=== PATIENT | female | born 1980 | race Hispanic/Latino ===

== ENCOUNTER 2017-03-27 09:30 | Emergency (ER) | payer MEDICAID ==
[2017-03-27 10:21] LABS: Basophils % (Auto) 0.4 % (0.0-1.8); Eosinophils % (Auto) 2.8 % (0.0-4.3); Hematocrit 41.5 % (30.3-42.9); Hemoglobin 13.4 gm/dl (10.1-14.3); Mean Corpuscular HGB Conc 32 % (30-34); Mean Corpuscular Hemoglobin 27 pg (28-32); Mean Corpuscular Volume 83 fl (79-97); Platelet Count 271 K/mm3 (140-440); Red Blood Count 5.01 M/mm3 (3.65-5.03); Red Cell Distribution Width 14.8 % (13.2-15.2); White Blood Count 5.6 K/mm3 (4.5-11.0)
[2017-03-27 10:35] LABS: Alanine Aminotransferase 21 units/L (7-56); Albumin 3.5 g/dL (3.9-5); Albumin/Globulin Ratio 0.9 %; Alkaline Phosphatase 102 units/L (35-129); Anion Gap 18 mmol/L; Bilirubin,Total 0.4 mg/dL (0.1-1.2); Blood Urea Nitrogen 8 mg/dL (7-17); Calcium 8.6 mg/dL (8.4-10.2); Carbon Dioxide 21 mmol/L (22-30); Chloride 100.3 mmol/L (98-107); Glucose 116 mg/dL (65-100); Lipase 10 units/L (13-60); Potassium 4.1 mmol/L (3.6-5.0); Sodium 135 mmol/L (137-145); Total Protein 7.2 g/dL (6.3-8.2)
[2017-03-27 10:48] LABS: Bilirubin,Urine NEG (Negative); Blood,Urine NEG (Negative); Ketones,Urine NEG (Negative); Leukocyte Esterase,Urine NEG (Negative); Nitrite,Urine NEG (Negative); Protein,Urine <15 mg/dL mg/dL (Negative); Urobilinogen,Urine < 2.0 mg/dL (<2.0)
--- NOTE | 2017-03-27 17:47 | Emergency Department Report ---
Chief Complaint: Abdominal Pain Stated Complaint: ABD PAIN/NAUSEA/VOMITTING Time Seen by Provider: 03/27/17 17:42 - HPI History of Present Illness: Patient here complaining of mid epigastric pain with she's had in the past she said that it started 3 days ago. She says she was diagnosed with gastritis in the past with similar incident. She reports nausea and vomiting for 2 days denies any diarrhea. Denies any urinary burning frequency or urgency. Denies any back pain. Denies any vaginal bleeding or discharge. Pain is 8 out of 10 to her upper abdomen and feels crampy. Patient says she took Tylenol and Aleve [id number] and also took Pepto-Bismol but it didn't help she said acute process stomach virus for a couple days. - ROS Review of Systems: All systems are negative unless stated in HPI above - Exam Vital Signs: Vital Signs 03/27/17 09:43 Temperature 97.7 F Pulse Rate 100 H Respiratory 19 Rate Blood Pressure 150/85 O2 Sat by Pulse 99 Oximetry Physical Exam: General: This is a 36-year-old female that is obese and in no acute distress. GI: No distention, no rigidity, very obese. Soft, normal bowel sounds. Mild tenderness to palpate to mid abdomen. MSE screening note: Focused history and physical exam performed. Due to findings the following was ordered: ED Medical Decision Making - Lab Data Result diagrams: 03/27/17 09:57 03/27/17 09:57 Lab Results 03/27/17 03/27/17 03/27/17 Range/Units 09:57 09:57 09:57 WBC 5.6 (4.5-11.0) K/mm3 RBC 5.01 (3.65-5.03) M/mm3 Hgb 13.4 (10.1-14.3) gm/dl Hct 41.5 (30.3-42.9) % MCV 83 (79-97) fl MCH 27 L (28-32) pg MCHC 32 (30-34) % RDW 14.8 (13.2-15.2) % Plt Count 271 (140-440) K/mm3 Lymph % (Auto) 28.4 (13.4-35.0) % [place] % (Auto) 14.9 H (0.0-7.3) % Eos % (Auto) 2.8 (0.0-4.3) % Baso % (Auto) 0.4 (0.0-1.8) % Lymph # 1.6 (1.2-5.4) K/mm3 [place] # 0.8 (0.0-0.8) K/mm3 Eos # 0.2 (0.0-0.4) K/mm3 Baso # 0.0 (0.0-0.1) K/mm3 Seg Neutrophils % 53.5 (40.0-70.0) % Seg Neutrophils # 3.0 (1.8-7.7) K/mm3 Sodium 135 L (137-145) mmol/L Potassium 4.1 (3.6-5.0) mmol/L Chloride 100.3 (98-107) mmol/L Carbon Dioxide 21 L (22-30) mmol/L Anion Gap 18 mmol/L BUN 8 (7-17) mg/dL Creatinine 0.5 L (0.7-1.2) mg/dL Estimated GFR > 60 ml/min BUN/Creatinine Ratio 16.00 % Glucose 116 H (65-100) mg/dL Calcium 8.6 (8.4-10.2) mg/dL Total Bilirubin 0.4 (0.1-1.2) mg/dL AST 25 (5-40) units/L ALT 21 (7-56) units/L Alkaline Phosphatase 102 (35-129) units/L Total Protein 7.2 (6.3-8.2) g/dL Albumin 3.5 L (3.9-5) g/dL Albumin/Globulin Ratio 0.9 % Lipase 10 L (13-60) units/L HCG, Qual Negative (Negative) Urine Color (Yellow) Urine Turbidity (Clear) Urine pH (5.0-7.0) Ur Specific [place] (1.003-1.030) Urine Protein (Negative) mg/dL Urine Glucose (UA) (Negative) mg/dL Urine Ketones (Negative) mg/dL Urine Blood (Negative) Urine Nitrite (Negative) Urine Bilirubin (Negative) Urine Urobilinogen (<2.0) mg/dL Ur Leukocyte Esterase (Negative) Urine WBC (Auto) (0.0-6.0) /HPF Urine RBC (Auto) (0.0-6.0) /HPF U Epithel Cells (Auto) (0-13.0) /HPF 03/27/17 Range/Units 10:35 WBC (4.5-11.0) K/mm3 RBC (3.65-5.03) M/mm3 Hgb (10.1-14.3) gm/dl Hct (30.3-42.9) % MCV (79-97) fl MCH (28-32) pg MCHC (30-34) % RDW (13.2-15.2) % Plt Count (140-440) K/mm3 Lymph % (Auto) (13.4-35.0) % [place] % (Auto) (0.0-7.3) % Eos % (Auto) (0.0-4.3) % Baso % (Auto) (0.0-1.8) % Lymph # (1.2-5.4) K/mm3 [place] # (0.0-0.8) K/mm3 Eos # (0.0-0.4) K/mm3 Baso # (0.0-0.1) K/mm3 Seg Neutrophils % (40.0-70.0) % Seg Neutrophils # (1.8-7.7) K/mm3 Sodium (137-145) mmol/L Potassium (3.6-5.0) mmol/L Chloride (98-107) mmol/L Carbon Dioxide (22-30) mmol/L Anion Gap mmol/L BUN (7-17) mg/dL Creatinine (0.7-1.2) mg/dL Estimated GFR ml/min BUN/Creatinine Ratio % Glucose (65-100) mg/dL Calcium (8.4-10.2) mg/dL Total Bilirubin (0.1-1.2) mg/dL AST (5-40) units/L ALT (7-56) units/L Alkaline Phosphatase (35-129) units/L Total Protein (6.3-8.2) g/dL Albumin (3.9-5) g/dL Albumin/Globulin Ratio % Lipase (13-60) units/L HCG, Qual (Negative) Urine Color Yellow (Yellow) Urine Turbidity Clear (Clear) Urine pH 6.0 (5.0-7.0) Ur Specific [place] 1.010 (1.003-1.030) Urine Protein <15 mg/dl (Negative) mg/dL Urine Glucose (UA) Neg (Negative) mg/dL Urine Ketones Neg (Negative) mg/dL Urine Blood Neg (Negative) Urine Nitrite Neg (Negative) Urine Bilirubin Neg (Negative) Urine Urobilinogen < 2.0 (<2.0) mg/dL Ur Leukocyte Esterase Neg (Negative) Urine WBC (Auto) 1.0 (0.0-6.0) /HPF Urine RBC (Auto) 1.0 (0.0-6.0) /HPF U Epithel Cells (Auto) 4.0 (0-13.0) /HPF - Medical Decision Making Medical decision making: Patient seen by provider in triage area. Appropriate protocol activated and patient to main ED to be seen by physician. ED Disposition for MSE Condition: Stable Instructions: Abdominal Pain (ED) Referrals: PRIMARY CARE, [Primary Care Provider] - 3-5 Days
--- NOTE | 2017-03-27 18:03 | Emergency Department Report ---
ED Abdominal Pain HPI - General Chief Complaint: Abdominal Pain Stated Complaint: ABD PAIN/NAUSEA/VOMITTING Time Seen by Provider: 03/27/17 17:42 Source: patient, family Mode of arrival: Ambulatory Limitations: No Limitations - History of Present Illness Initial Comments: Patient here complaining of mid epigastric pain with she's had in the past she said that it started 3 days ago. She says she was diagnosed with gastritis in the past with similar incident. She reports nausea and vomiting for 2 days denies any diarrhea. Denies any urinary burning frequency or urgency. Denies any back pain. Denies any vaginal bleeding or discharge. Pain is 8 out of 10 to her upper abdomen and feels crampy. Patient says she took Tylenol and Aleve [id number] and also took Pepto-Bismol but it didn't help . She reports that her children have similar virus over the last couple days and she thinks she has it. She says she vomited times 2 in the morning. MD Complaint: abdominal pain Onset/Timin -: days(s) Location: epigastric Radiation: none Migration to: no migration Quality: burning Consistency: intermittent Improves With: nothing Worsens With: nothing Context: sick contacts Associated Symptoms: nausea, vomiting. denies: diarrhea, fever, chills, constipation, dysuria, hematemesis, hematochezia, melena, hematuria, anorexia, syncope Treatments Prior to Arrival: NSAIDs, antacids - Related Data LMP Date: 02/22/17 Previous Rx's Medication Instructions Recorded Last Taken Type Dicyclomine [Bentyl] 20 mg PO TID PRN #12 tablet 03/27/17 Unknown Rx Promethazine [Phenergan TAB] 25 mg PO Q8HR PRN #15 tab 03/27/17 Unknown Rx Allergies Allergy/AdvReac Type Severity Reaction Status Date / Time codeine Allergy Rash Verified 03/27/17 09:42 ED Review of Systems ROS: Stated complaint: ABD PAIN/NAUSEA/VOMITTING Other details as noted in HPI Comment: All other systems reviewed and negative Constitutional: denies: chills, fever ENT: denies: throat pain Respiratory: no symptoms reported Cardiovascular: denies: chest pain, palpitations, edema, syncope Gastrointestinal: abdominal pain, nausea, vomiting. denies: diarrhea, constipation, hematemesis, melena Genitourinary: denies: urgency, dysuria, frequency, hematuria, discharge Skin: denies: rash Neurological: denies: headache, weakness, numbness, paresthesias, confusion, abnormal gait ED Past Medical Hx - Past Medical History Previous Medical History?: Yes Hx GERD: Yes Hx Asthma: Yes Additional medical history: pancreatitis (multiple episodes ). obesity - Surgical History Hx Cholecystectomy: Yes Additional Surgical History: x 2 - Social History Smoking Status: Current Every Day Smoker Substance Use Type: None - Medications Home Medications: Home Medications Medication Instructions Recorded Confirmed Last Taken Type Dicyclomine [Bentyl] 20 mg PO TID PRN #12 tablet 03/27/17 Unknown Rx Promethazine [Phenergan TAB] 25 mg PO Q8HR PRN #15 tab 03/27/17 Unknown Rx ED Physical Exam - General Limitations: No Limitations General appearance: alert, in no apparent distress - Head Head exam: Present: atraumatic, normocephalic, normal inspection - Eye Eye exam: Present: normal appearance, PERRL, EOMI. Absent: periorbital swelling , periorbital tenderness Pupils: Present: normal accommodation - ENT ENT exam: Present: normal exam, normal orophraynx, mucous membranes moist, TM's normal bilaterally, normal external ear exam - Neck Neck exam: Present: normal inspection, full ROM. Absent: tenderness, meningismus, lymphadenopathy - Respiratory Respiratory exam: Present: normal lung sounds bilaterally. Absent: respiratory distress, chest wall tenderness - Cardiovascular Cardiovascular Exam: Present: regular rate, normal rhythm, normal heart sounds - GI/Abdominal GI/Abdominal exam: Present: soft, normal bowel sounds. Absent: distended, tenderness, guarding, rebound, rigid, diminished bowel sounds, hyperactive bowel sounds, hypoactive bowel sounds, organomegaly, mass, bruit, pulsatile mass , hernia - Extremities Exam Extremities exam: Present: normal inspection, full ROM, normal capillary refill. Absent: tenderness, pedal edema, joint swelling, calf tenderness - Back Exam Back exam: Present: normal inspection, full ROM. Absent: tenderness, CVA tenderness (R), CVA tenderness (L), muscle spasm, paraspinal tenderness, vertebral tenderness, rash noted - Neurological Exam Neurological exam: Present: alert, oriented X3, normal gait. Absent: motor sensory deficit, reflexes normal - Psychiatric Psychiatric exam: Present: normal affect, normal mood - Skin Skin exam: Present: warm, dry, normal color. Absent: rash ED Course Vital Signs 03/27/17 03/27/17 09:43 18:54 Temperature 97.7 F 98 F Pulse Rate 100 H 89 Respiratory 19 89 H Rate Blood Pressure 150/85 Blood Pressure 137/79 [Right] O2 Sat by Pulse 99 100 Oximetry - Reevaluation(s) Reevaluation #1: 03/27/17 20:04 She is stable throughout ED course. Able to tolerate cranberry juice without any difficulties and did not vomit. Reevaluation of abdominal exam with no changes. Reevaluation #2: 03/27/17 20:06 Patient given Magic mouthwash 15 mils, Bentyl 20 mg by mouth and Zofran 8 mg ODT. ED Medical Decision Making - Lab Data Result diagrams: 03/27/17 09:57 03/27/17 09:57 Labs 03/27/17 03/27/17 03/27/17 09:57 09:57 09:57 WBC 5.6 RBC 5.01 Hgb 13.4 Hct 41.5 MCV 83 MCH 27 L MCHC 32 RDW 14.8 Plt Count 271 Lymph % (Auto) 28.4 [place] % (Auto) 14.9 H Eos % (Auto) 2.8 Baso % (Auto) 0.4 Lymph # 1.6 [place] # 0.8 Eos # 0.2 Baso # 0.0 Seg Neutrophils % 53.5 Seg Neutrophils # 3.0 Sodium 135 L Potassium 4.1 Chloride 100.3 Carbon Dioxide 21 L Anion Gap 18 BUN 8 Creatinine 0.5 L Estimated GFR > 60 BUN/Creatinine Ratio 16.00 Glucose 116 H Calcium 8.6 Total Bilirubin 0.4 AST 25 ALT 21 Alkaline Phosphatase 102 Total Protein 7.2 Albumin 3.5 L Albumin/Globulin Ratio 0.9 Lipase 10 L HCG, Qual Negative Urine Color Urine Turbidity Urine pH Ur Specific [place] Urine Protein Urine Glucose (UA) Urine Ketones Urine Blood Urine Nitrite Urine Bilirubin Urine Urobilinogen Ur Leukocyte Esterase Urine WBC (Auto) Urine RBC (Auto) U Epithel Cells (Auto) 03/27/17 10:35 WBC RBC Hgb Hct MCV MCH MCHC RDW Plt Count Lymph % (Auto) [place] % (Auto) Eos % (Auto) Baso % (Auto) Lymph # [place] # Eos # Baso # Seg Neutrophils % Seg Neutrophils # Sodium Potassium Chloride Carbon Dioxide Anion Gap BUN Creatinine Estimated GFR BUN/Creatinine Ratio Glucose Calcium Total Bilirubin AST ALT Alkaline Phosphatase Total Protein Albumin Albumin/Globulin Ratio Lipase HCG, Qual Urine Color Yellow Urine Turbidity Clear Urine pH 6.0 Ur Specific [place] 1.010 Urine Protein <15 mg/dl Urine Glucose (UA) Neg Urine Ketones Neg Urine Blood Neg Urine Nitrite Neg Urine Bilirubin Neg Urine Urobilinogen < 2.0 Ur Leukocyte Esterase Neg Urine WBC (Auto) 1.0 Urine RBC (Auto) 1.0 U Epithel Cells (Auto) 4.0 - Medical Decision Making ED course:Patient with epigastric pain unspecified, nausea and vomiting with explanation from children.Patient given Magic mouthwash 15 mils, Bentyl 20 mg by mouth and Zofran 8 mg ODT. I discussed lab work and urine was felt the patient. Her labs are stable. Patient able to tolerate oral liquids in emergency room without any nausea or vomiting. Patient was undescended discharge diagnosis and treatment plan and discharged home with prescription for Bentyl and Phenergan. Patient encouraged to follow up with tester electronic scale for further evaluation and treatment of epigastric pain pain continues. Critical care attestation.: If time is entered above; I have spent that time in minutes in the direct care of this critically ill patient, excluding procedure time. ED Disposition Clinical Impression: Epigastric abdominal pain Nausea & vomiting Qualifiers: Vomiting type: unspecified Vomiting Intractability: non-intractable Qualified Code(s): R11.2 - Nausea with vomiting, unspecified Disposition: DISCHARGED TO HOME OR SELFCARE Is pt being admited?: No Does the pt Need Aspirin: No Instructions: Abdominal Pain (ED), Acute Nausea and Vomiting (ED) Additional Instructions: Drink plenty of fluids Phenergan can cause drowsiness so please do not operate any heavy machinery or drive motor vehicle while taking this medication Prescriptions: Dicyclomine [Bentyl] 20 mg PO TID PRN #12 tablet PRN Reason: STOMACH PAIN Promethazine [Phenergan TAB] 25 mg PO Q8HR PRN #15 tab PRN Reason: Nausea Referrals: [facility] [Outside] - 03/28/17 [facility] [Provider Group] - 04/01/17 Forms: Accompanied Note, Work/School Release Form(ED)
[2017-03-27 18:55] VITALS: BP 137/79
[2017-03-27] MEDS ORDERED: BENTYL PO ONE ×2 (20:05→21:00)
[2017-03-27] MEDS ORDERED: ZOFRAN ODT PO ONE (20:05)
[2017-03-27] MEDS ORDERED: MAGIC MOUTHWASH PO ONE (20:05)
== END 2017-03-27 21:06 | disposition home or self-care (01) ==
LOC: ED 09:30
DX: R10.13 Epigastric pain (principal); R11.2 Nausea with vomiting, unspecified; K21.9 Gastro-esophageal reflux disease without esophagitis; J45.909 Unspecified asthma, uncomplicated; K85.90 Acute pancreatitis without necrosis or infection, unspecified; E66.9 Obesity, unspecified; F17.200 Nicotine dependence, unspecified, uncomplicated
CPT/HCPCS: 36415; 80053; 81001; 83690; 84703; 85025; 99284; Q0162

== ENCOUNTER 2017-10-08 07:58 | Emergency (ER) | payer MEDICAID ==
[2017-10-08 08:21] VITALS: BP 143/84
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
[2017-10-08] MEDS ORDERED: NORCO 5/325 PO ONE (10:28)
--- NOTE | 2017-10-08 12:36 | XRay Report ---
Right shoulder 3 views: History: Injury. Findings: No bony or articular abnormality. No fracture dislocation or soft tissue calcification. Impression: No evidence of acute fracture.
== END 2017-10-08 13:47 | disposition home or self-care (01) ==
LOC: ED 07:58
DX: S49.91XA Unspecified injury of right shoulder and upper arm, initial encounter (principal); M25.511 Pain in right shoulder; Y04.0XXA Assault by unarmed brawl or fight, initial encounter; Y93.89 Activity, other specified; Y92.89 Other specified places as the place of occurrence of the external cause; Y99.8 Other external cause status
CPT/HCPCS: 81025

== ENCOUNTER 2018-03-28 13:42 | Emergency (ER) | payer MEDICAID ==
[2018-03-28] MEDS ORDERED: DUONEB *Not for PRN Use IH ONE (14:55)
[2018-03-28] MEDS ORDERED: DELTASONE PO ONE (14:55)
--- NOTE | 2018-03-28 14:55 | Emergency Department Report ---
ED General Adult HPI - General Chief complaint: Upper Respiratory Infection Stated complaint: COUGH CONGESTION Time Seen by Provider: 03/28/18 14:42 Source: patient Mode of arrival: Ambulatory Limitations: No Limitations - History of Present Illness -: Gradual Location: head Radiation: non-radiation Severity scale (0 -10): 5 Quality: aching Consistency: other (headache with cough, no neck pain , visual disturbances, weakness or gait changes or fever) - Related Data Previous Rx's Medication Instructions Recorded Last Taken Type Azithromycin [Zithromax Z-ELODIA] 250 mg PO DAILY 5 Days #6 tablet 03/28/18 Unknown Rx predniSONE [Deltasone] 40 mg PO QDAY 4 Days #8 tab 03/28/18 Unknown Rx Allergies Allergy/AdvReac Type Severity Reaction Status Date / Time codeine Allergy Rash Verified 03/27/17 09:42 ED Review of Systems ROS: Stated complaint: COUGH CONGESTION Other details as noted in HPI Comment: All other systems reviewed and negative Constitutional: denies: chills, fever Eyes: denies: eye pain, eye discharge, vision change ENT: denies: ear pain, throat pain Respiratory: cough, wheezing, other (pt smokes). denies: shortness of breath Cardiovascular: denies: chest pain, palpitations, syncope, paroxysmal nocturnal dyspnea Endocrine: no symptoms reported. denies: excessive sweating, increased thirst, increased urine Gastrointestinal: denies: abdominal pain, nausea, diarrhea Genitourinary: denies: urgency, dysuria, discharge Musculoskeletal: denies: back pain, joint swelling, arthralgia Skin: denies: rash, lesions Neurological: denies: headache, weakness, paresthesias Psychiatric: denies: anxiety, depression Hematological/Lymphatic: denies: easy bleeding, easy bruising ED Past Medical Hx - Past Medical History Hx Hypertension: No Hx CVA: No Hx Heart Attack/AMI: No Hx Congestive Heart Failure: No Hx Diabetes: No Hx Deep Vein Thrombosis: No Hx Pulmonary Embolism: No Hx GERD: Yes Hx Liver Disease: No Hx Renal Disease: No Hx of Cancer: No Hx Sickle Cell Disease: No Hx Arthritis: No Hx Headaches / Migraines: Yes Hx Seizures: No Hx Kidney Stones: No Hx Psychiatric Treatment: No Hx Asthma: Yes (pt smokes, i counciled pt to stop) Hx COPD: No Additional medical history: pancreatitis (multiple episodes ), BRONCHITIS. obesity - Surgical History Hx Cholecystectomy: Yes Additional Surgical History: x 2 - Social History Smoking Status: Current Every Day Smoker Substance Use Type: None - Medications Home Medications: Home Medications Medication Instructions Recorded Confirmed Last Taken Type Azithromycin [Zithromax Z-ELODIA] 250 mg PO DAILY 5 Days #6 tablet 03/28/18 Unknown Rx predniSONE [Deltasone] 40 mg PO QDAY 4 Days #8 tab 03/28/18 Unknown Rx ED Physical Exam - General Limitations: No Limitations General appearance: alert, in no apparent distress - Head Head exam: Present: atraumatic, normocephalic - Eye Eye exam: Present: normal appearance - ENT ENT exam: Present: mucous membranes moist - Neck Neck exam: Present: normal inspection - Respiratory Respiratory exam: Present: normal lung sounds bilaterally, wheezes. Absent: respiratory distress, rales, rhonchi, stridor, chest wall tenderness, accessory muscle use, decreased breath sounds, prolonged expiratory - Cardiovascular Cardiovascular Exam: Present: regular rate, normal rhythm. Absent: systolic murmur, diastolic murmur, rubs, gallop - GI/Abdominal GI/Abdominal exam: Present: soft, normal bowel sounds - Extremities Exam Extremities exam: Present: normal inspection - Back Exam Back exam: Present: normal inspection - Neurological Exam Neurological exam: Present: alert, oriented X3 - Psychiatric Psychiatric exam: Present: normal affect, normal mood - Skin Skin exam: Present: warm, dry, intact, normal color. Absent: rash ED Course Vital Signs 03/28/18 13:46 Temperature 98.9 F Pulse Rate 98 H Respiratory 20 Rate Blood Pressure 166/96 O2 Sat by Pulse 99 Oximetry ED Medical Decision Making - Radiology Data Radiology results: report reviewed (no acute cardiopulmonary findings) - Medical Decision Making no more wheezing. pt asking for z pack, states " this helps me when i get this" pt counciled to stop smoking. no cp or sob or l arm pain or jaw pain. Critical Care Time: No Critical care attestation.: If time is entered above; I have spent that time in minutes in the direct care of this critically ill patient, excluding procedure time. ED Disposition Clinical Impression: Wheezing on expiration, Cough, Smoker Disposition: DC-01 TO HOME OR SELFCARE Is pt being admited?: No Does the pt Need Aspirin: No Condition: Stable Instructions: How to Stop Smoking (ED) Additional Instructions: Call 911 if you have chest pain or trouble breathing. Never smoke, as smoking causes heart attacks, strokes and bad lung diseases and cancers. Smoking ages your body much faster than if you didn't smoke. Prescriptions: Azithromycin [Zithromax Z-ELODIA] 250 mg PO DAILY 5 Days #6 tablet predniSONE [Deltasone] 40 mg PO QDAY 4 Days #8 tab Referrals: PRIMARY CARE, [Primary Care Provider] - 3-5 Days
[2018-03-28] MEDS ORDERED: NORCO 5/325 PO ONE (14:56)
[2018-03-28] MEDS ORDERED: BENADRYL PO ONE (14:57)
--- NOTE | 2018-03-28 15:19 | XRay Report ---
Chest 2 views: Compare to 06/28/16. History: Upper respiratory infection. Findings: Normal cardiomediastinal silhouette. Trachea is midline. No consolidation, pneumothorax or pleural effusion. Impression: No acute cardiopulmonary findings
[2018-03-28 15:50] VITALS: BP 152/87
== END 2018-03-28 15:53 | disposition home or self-care (01) ==
LOC: ED 13:42
DX: R06.2 Wheezing (principal); R05 Cough; K21.9 Gastro-esophageal reflux disease without esophagitis; J45.909 Unspecified asthma, uncomplicated; F17.200 Nicotine dependence, unspecified, uncomplicated; Z90.49 Acquired absence of other specified parts of digestive tract; Z88.5 Allergy status to narcotic agent
CPT/HCPCS: 71046; 99283; J7512

== ENCOUNTER 2019-03-12 09:07 | Emergency (ER) | payer MEDICAID ==
[2019-03-12 09:20] VITALS: BP 133/68
[2019-03-12] MEDS ORDERED: PROVENTIL IH ONE (09:46)
[2019-03-12] MEDS ORDERED: ATROVENT IH ONE (09:46)
[2019-03-12] MEDS ORDERED: DECADRON IM ONE (09:46)
--- NOTE | 2019-03-12 09:53 | Emergency Department Report ---
Upper Respiratory HPI - HPI Chief Complaint: Upper Respiratory Infection Stated Complaint: SAUL/COUGHING Time Seen by Provider: 03/12/19 09:33 Duration: 2 Days URI Symptoms: Rhinorrhea: Yes, Sore Throat: No, Ear Pain: No, Cough: Yes, Shortness of Breath: Yes, Sick Contacts: No, Unable to Take Fluids: No, Urine Output Abnormal: No, Listless Behavior: No Other History: This is a 38-year-old female nontoxic, well nourished in appearance, no acute signs of distress presents to the ED with c/o of productive cough, SOB, rhinorrhea, nasal congestion x2 days. Patient describes productive cough as yellow mucus production. Patient denies any sick contact. Patient denies any recent travels, long car, recent hospital stays. Patient denies any calf pain or calf tenderness. Patient denies any chest pain, short of breath, fever, chills, nausea, vomiting, hemoptysis, numbness, tingling, headache or stiff neck. Patient stated allergies to codeine. - Home Meds and Allergies Home Medications: Previous Rx's Medication Instructions Recorded Last Taken Type ALBUTEROL NEB's [Proventil 0.083% 2.5 mg IH TID PRN 7 Days neb 03/28/18 Unknown Rx NEBS] Azithromycin [Zithromax Z-ELODIA] 250 mg PO DAILY 5 Days #6 tablet 03/28/18 Unknown Rx Nebulizer and Compressor [Portable 1 each MC 4XD 7 Days each 03/28/18 Unknown Rx Nebulizer System] predniSONE [Deltasone] 40 mg PO QDAY 4 Days #8 tab 03/28/18 Unknown Rx ALBUTEROL Inhaler(NF) [VENTOLIN 2 puff IH Q4-6H PRN #1 inha 03/12/19 Unknown Rx Inhaler(NF)] Azithromycin [Zithromax Z-ELODIA] 250 mg PO DAILY #6 tablet 03/12/19 Unknown Rx Benzonatate [Tessalon Perle] 100 mg PO Q6H PRN #20 capsule 03/12/19 Unknown Rx Prednisone [predniSONE 10 mg 10 mg PO .TAPER #1 tab.ds.pk 03/12/19 Unknown Rx (6-Day Pack, 21 Tabs)] Allergies/Adverse Reactions: Allergies Allergy/AdvReac Type Severity Reaction Status Date / Time codeine Allergy Rash Verified 03/12/19 09:09 ED Review of Systems ROS: Stated complaint: SAUL/COUGHING Other details as noted in HPI Constitutional: denies: chills, fever Eyes: denies: eye pain, eye discharge, vision change ENT: congestion. denies: ear pain, throat pain Respiratory: cough, shortness of breath. denies: wheezing Cardiovascular: denies: chest pain, palpitations Endocrine: no symptoms reported Gastrointestinal: denies: abdominal pain, nausea, diarrhea Genitourinary: denies: urgency, dysuria, discharge Musculoskeletal: denies: back pain, joint swelling, arthralgia Skin: denies: rash, lesions Neurological: denies: headache, weakness, paresthesias Psychiatric: denies: anxiety, depression Hematological/Lymphatic: denies: easy bleeding, easy bruising ED Past Medical Hx - Past Medical History Previous Medical History?: Yes Hx Hypertension: No Hx CVA: No Hx Heart Attack/AMI: No Hx Congestive Heart Failure: No Hx Diabetes: No Hx Deep Vein Thrombosis: No Hx Pulmonary Embolism: No Hx GERD: Yes Hx Liver Disease: No Hx Renal Disease: No Hx Sickle Cell Disease: No Hx Arthritis: No Hx Headaches / Migraines: Yes Hx Seizures: No Hx Kidney Stones: No Hx Psychiatric Treatment: No Hx Asthma: Yes (pt smokes, i counciled pt to stop) Hx COPD: No Additional medical history: pancreatitis (multiple episodes ), BRONCHITIS. obesity - Surgical History Past Surgical History?: Yes Hx Cholecystectomy: Yes Additional Surgical History: x 2 - Social History Smoking Status: Current Every Day Smoker Substance Use Type: None - Medications Home Medications: Home Medications Medication Instructions Recorded Confirmed Last Taken Type ALBUTEROL NEB's [Proventil 0.083% 2.5 mg IH TID PRN 7 Days neb 03/28/18 Unknown Rx NEBS] Azithromycin [Zithromax Z-ELODIA] 250 mg PO DAILY 5 Days #6 tablet 03/28/18 Unknown Rx Nebulizer and Compressor [Portable 1 each MC 4XD 7 Days each 03/28/18 Unknown Rx Nebulizer System] predniSONE [Deltasone] 40 mg PO QDAY 4 Days #8 tab 03/28/18 Unknown Rx ALBUTEROL Inhaler(NF) [VENTOLIN 2 puff IH Q4-6H PRN #1 inha 03/12/19 Unknown Rx Inhaler(NF)] Azithromycin [Zithromax Z-ELODIA] 250 mg PO DAILY #6 tablet 03/12/19 Unknown Rx Benzonatate [Tessalon Perle] 100 mg PO Q6H PRN #20 capsule 03/12/19 Unknown Rx Prednisone [predniSONE 10 mg 10 mg PO .TAPER #1 tab.ds.pk 03/12/19 Unknown Rx (6-Day Pack, 21 Tabs)] ED Bronchiolitis Physical Exam - Exam General: Vital signs noted. No distress. Alert and acting appropriately. Neurologic: Alert and oriented, no deficits. Musculoskeletal: Unremarkable. ED Physical Exam - General Limitations: No Limitations General appearance: alert, in no apparent distress - Head Head exam: Present: atraumatic, normocephalic - Eye Eye exam: Present: normal appearance - Neck Neck exam: Present: normal inspection, full ROM. Absent: tenderness, meningismus, lymphadenopathy - Respiratory Respiratory exam: Present: normal lung sounds bilaterally, wheezes, decreased breath sounds. Absent: respiratory distress, rales, rhonchi, stridor, chest wall tenderness, accessory muscle use, prolonged expiratory - Cardiovascular Cardiovascular Exam: Present: regular rate, normal rhythm, normal heart sounds. Absent: irregular rhythm, systolic murmur, diastolic murmur, rubs, gallop - Extremities Exam Extremities exam: Present: normal inspection, full ROM - Back Exam Back exam: Present: normal inspection, full ROM - Neurological Exam Neurological exam: Present: alert, oriented X3, normal gait - Psychiatric Psychiatric exam: Present: normal affect, normal mood - Skin Skin exam: Present: warm, dry, intact, normal color. Absent: rash ED Course Vital Signs 03/12/19 03/12/19 09:17 09:39 Temperature 98.4 F Pulse Rate 98 H Respiratory 24 17 Rate Blood Pressure 133/68 O2 Sat by Pulse 100 Oximetry - Consultations Consultation #1: 03/12/19 09:50 Patient is speaking in full sentences with no signs of distress noted. ED Medical Decision Making - Medical Decision Making This is a 38-year-old female that presents with bronchitis. Patient is stable and was examined by me. Chest x-ray has been obtained and dictated by radiologist with normal exam. Patient is notified of x-ray results with no questions noted. Patient did receive breathing treatment and steroids in the ED which patient the symptoms has resolved and subsided. Posttreatment and there is no wheezing upon auscultation. Patient is discharged with albuterol and prednisone. Due to patient having symptoms of upper respiratory infection and worsening I will treat patient empirically with zpak. Patient was instructed to increase hydration, rest and take Motrin for fever episodes. Vitals stable. Patient is nonfebrile and normal heart rate. Patient was instructed Follow-up with a primary care doctor in 3-5 days or if symptoms worsen and continue return to emergency room as soon as possible. At time time of discharge, the patient does not seem toxic or ill in appearance. No acute signs of distress noted. Patient agrees to discharge treatment plan of care. No further questions noted by the patient. Critical care attestation.: If time is entered above; I have spent that time in minutes in the direct care of this critically ill patient, excluding procedure time. ED Disposition Clinical Impression: Bronchitis Disposition: DC-01 TO HOME OR SELFCARE Is pt being admited?: No Does the pt Need Aspirin: No Condition: Stable Instructions: Acute Bronchitis (ED) Additional Instructions: Follow-up with a primary care doctor in 3-5 days or if symptoms worsen and continue return to emergency room as soon as possible. Prescriptions: Prednisone [predniSONE 10 mg (6-Day Pack, 21 Tabs)] 10 mg PO .TAPER #1 tab.ds.pk Benzonatate [Tessalon Perle] 100 mg PO Q6H PRN #20 capsule PRN Reason: Cough ALBUTEROL Inhaler(NF) [VENTOLIN Inhaler(NF)] 2 puff IH Q4-6H PRN #1 inha PRN Reason: Wheezing Azithromycin [Zithromax Z-ELODIA] 250 mg PO DAILY #6 tablet Referrals: PRIMARY MD FRANNIE [Referring] - 3-5 Days KRISTINE CAR MD [Staff Physician] - 3-5 Days [facility] [Outside] - 3-5 Days [facility] [Outside] - 3-5 Days Forms: Work/School Release Form(ED)
--- NOTE | 2019-03-12 10:34 | XRay Report ---
XRAY CHEST TWO VIEWS: 03/12/19 09:07:00 CLINICAL: Cough and shortness of breath. COMPARISON: 03/28/18 FINDINGS: Normal heart and pulmonary vasculature. The lungs are normally expanded and clear.The bones and soft tissues are unremarkable. IMPRESSION: Normal chest.
== END 2019-03-12 10:52 | disposition home or self-care (01) ==
LOC: ED 09:07
DX: J45.909 Unspecified asthma, uncomplicated (principal); K21.9 Gastro-esophageal reflux disease without esophagitis; G43.909 Migraine, unspecified, not intractable, without status migrainosus; F17.210 Nicotine dependence, cigarettes, uncomplicated; Z90.49 Acquired absence of other specified parts of digestive tract; Z88.6 Allergy status to analgesic agent
CPT/HCPCS: 71046; 94640; 96372; 99283; J1100

== ENCOUNTER 2019-04-04 17:44 | Emergency (ER) | payer MEDICAID ==
[2019-04-04 18:10] VITALS: BP 135/76
[2019-04-04 19:37] LABS: Basophils % (Auto) 0.5 % (0.0-1.8); Eosinophils # (Auto) 0.2 K/mm3 (0.0-0.4); Eosinophils % (Auto) 2.5 % (0.0-4.3); Hematocrit 32.1 % (30.3-42.9); Hemoglobin 10.1 gm/dl (10.1-14.3); Lymphocytes # (Auto) 2.1 K/mm3 (1.2-5.4); Mean Corpuscular HGB Conc 31 % (30-34); Mean Corpuscular Volume 74 fl (79-97); Monocytes # (Auto) 0.7 K/mm3 (0.0-0.8); Monocytes % (Auto) 11.2 % (0.0-7.3); Platelet Count 298 K/mm3 (140-440); Red Blood Count 4.37 M/mm3 (3.65-5.03); Red Cell Distribution Width 18.8 % (13.2-15.2)
[2019-04-04 19:47] LABS: INR 1.07 (0.87-1.13)
[2019-04-04 19:48] LABS: Partial Thromboplastin Time 33.3 Sec. (24.2-36.6)
[2019-04-04 19:53] LABS: Alanine Aminotransferase 19 units/L (7-56); Albumin 3.5 g/dL (3.9-5); BUN/Creatinine Ratio 11; Blood Urea Nitrogen 8 mg/dL (7-17); Calcium 8.7 mg/dL (8.4-10.2); Hemolysis Index 7
--- NOTE | 2019-04-04 20:04 | Emergency Department Report ---
ED General Adult HPI - General Chief complaint: Extremity Problem,Nontraumatic Stated complaint: KNOT RT ARM Time Seen by Provider: 04/04/19 19:10 Source: patient Mode of arrival: Ambulatory Limitations: No Limitations - History of Present Illness Initial comments: Patient is a 38-year-old white female with a history of GERD, chronic migraine headaches and asthma and usually donates plasma regularly presents to the ED with right upper ecchymosis over the last 12 hours. Patient states that she had gone to the midline about 8 hours ago when upon examination she was advised to come to the ED for blood tests and rule out any abnormal lab values due to the ecchymotic bruise on her right upper arm. Patient asked for medical clearance in order to continue donating blood and plasma. Patient denies fever, chills, nausea, vomiting, shortness of breath, chest pain, numbness and tingling right upper extremity, neck pain, fall or traumatic injury. MD Complaint: Right upper arm bruises -: Sudden, hour(s) (12), This morning Location: upper extremity (right upper arm) Radiation: non-radiation Severity scale (0 -10): 1 Quality: aching, dull Consistency: constant Improves with: none Worsens with: none Associated Symptoms: denies: confusion, chest pain, cough, diaphoresis, fever/chills, headaches, loss of appetite, malaise, nausea/vomiting, rash, seizure, shortness of breath, syncope, weakness, other Treatments Prior to Arrival: none - Related Data Previous Rx's Medication Instructions Recorded Last Taken Type ALBUTEROL NEB's [Proventil 0.083% 2.5 mg IH TID PRN 7 Days neb 03/28/18 Unknown Rx NEBS] Azithromycin [Zithromax Z-ELODIA] 250 mg PO DAILY 5 Days #6 tablet 03/28/18 Unknown Rx Nebulizer and Compressor [Portable 1 each MC 4XD 7 Days each 03/28/18 Unknown Rx Nebulizer System] predniSONE [Deltasone] 40 mg PO QDAY 4 Days #8 tab 03/28/18 Unknown Rx ALBUTEROL Inhaler(NF) [VENTOLIN 2 puff IH Q4-6H PRN #1 inha 03/12/19 Unknown Rx Inhaler(NF)] Azithromycin [Zithromax Z-ELODIA] 250 mg PO DAILY #6 tablet 03/12/19 Unknown Rx Benzonatate [Tessalon Perle] 100 mg PO Q6H PRN #20 capsule 03/12/19 Unknown Rx Prednisone [predniSONE 10 mg 10 mg PO .TAPER #1 tab.ds.pk 03/12/19 Unknown Rx (6-Day Pack, 21 Tabs)] Allergies Allergy/AdvReac Type Severity Reaction Status Date / Time codeine Allergy Rash Verified 04/04/19 17:54 ED Review of Systems ROS: Stated complaint: KNOT RT ARM Other details as noted in HPI Comment: All other systems reviewed and negative Constitutional: no symptoms reported, see HPI. denies: chills, diaphoresis, fever, malaise Eyes: as per HPI. denies: eye pain, eye discharge, vision change ENT: as per HPI. denies: ear pain, throat pain, dental pain, hearing loss Respiratory: no symptoms reported, see HPI. denies: shortness of breath, SOB with exertion, SOB at rest Cardiovascular: as per HPI. denies: chest pain, palpitations, dyspnea on exertion Endocrine: no symptoms reported, see HPI. denies: excessive sweating, intolerance to cold, increased thirst, unexplained weight gain Gastrointestinal: as per HPI. denies: abdominal pain, nausea, vomiting, diarrhea, hematemesis, melena Genitourinary: as per HPI. denies: urgency, frequency, hematuria, discharge Musculoskeletal: as per HPI. denies: back pain, joint swelling, arthralgia, myalgia Skin: as per HPI, change in color (Mildly erythematous small patchy nontender bruises on right upper arm). denies: rash, lesions, change in hair/nails, pruritus, other Neurological: as per HPI. denies: headache, weakness, numbness, paresthesias, confusion, abnormal gait, vertigo Psychiatric: as per HPI. denies: anxiety, depression, auditory hallucinations, visual hallucinations Hematological/Lymphatic: as per HPI, other (right upper arm mildly patchy erythematous ecchymosis). denies: easy bleeding, easy bruising, swollen glands ED Past Medical Hx - Past Medical History Previous Medical History?: Yes Hx Hypertension: No Hx CVA: No Hx Heart Attack/AMI: No Hx Congestive Heart Failure: No Hx Diabetes: No Hx Deep Vein Thrombosis: No Hx Pulmonary Embolism: No Hx GERD: Yes Hx Liver Disease: No Hx Renal Disease: No Hx Sickle Cell Disease: No Hx Arthritis: No Hx Headaches / Migraines: Yes Hx Seizures: No Hx Kidney Stones: No Hx Psychiatric Treatment: No Hx Asthma: Yes (pt smokes, i counciled pt to stop) Hx COPD: No Additional medical history: pancreatitis (multiple episodes ), BRONCHITIS. obesity - Surgical History Hx Cholecystectomy: Yes Additional Surgical History: x 2 - Social History Smoking Status: Current Every Day Smoker Substance Use Type: None - Medications Home Medications: Home Medications Medication Instructions Recorded Confirmed Last Taken Type ALBUTEROL NEB's [Proventil 0.083% 2.5 mg IH TID PRN 7 Days neb 03/28/18 Unk nown Rx NEBS] Azithromycin [Zithromax Z-ELODIA] 250 mg PO DAILY 5 Days #6 tablet 03/28/18 Unkn own Rx Nebulizer and Compressor [Portable 1 each MC 4XD 7 Days each 03/28/18 Unknown Rx Nebulizer System] predniSONE [Deltasone] 40 mg PO QDAY 4 Days #8 tab 03/28/18 Unknown Rx ALBUTEROL Inhaler(NF) [VENTOLIN 2 puff IH Q4-6H PRN #1 inha 03/12/19 Unknown Rx Inhaler(NF)] Azithromycin [Zithromax Z-ELODIA] 250 mg PO DAILY #6 tablet 03/12/19 Unknown Rx Benzonatate [Tessalon Perle] 100 mg PO Q6H PRN #20 capsule 03/12/19 Unknown Rx Prednisone [predniSONE 10 mg 10 mg PO .TAPER #1 tab.ds.pk 03/12/19 Unknown Rx (6-Day Pack, 21 Tabs)] ED Physical Exam - General Limitations: No Limitations General appearance: alert, in no apparent distress - Head Head exam: Present: atraumatic, normocephalic, normal inspection - Eye Eye exam: Present: normal appearance, PERRL, EOMI. Absent: conjunctival injecti on, periorbital swelling, periorbital tenderness Pupils: Present: normal accommodation - ENT ENT exam: Present: normal exam, normal orophraynx, mucous membranes moist, TM's normal bilaterally, normal external ear exam - Neck Neck exam: Present: normal inspection. Absent: tenderness, meningismus, full ROM, lymphadenopathy, thyromegaly - Respiratory Respiratory exam: Present: normal lung sounds bilaterally. Absent: respiratory distress, wheezes, rales, rhonchi, chest wall tenderness, accessory muscle use, decreased breath sounds - Cardiovascular Cardiovascular Exam: Present: regular rate, normal rhythm, normal heart sounds - GI/Abdominal GI/Abdominal exam: Present: soft, normal bowel sounds. Absent: distended, tenderness, hyperactive bowel sounds, hypoactive bowel sounds - Rectal Rectal exam: Present: deferred - Extremities Exam Extremities exam: Present: normal inspection. Absent: full ROM, tenderness, normal capillary refill, pedal edema, joint swelling, calf tenderness - Back Exam Back exam: Present: normal inspection, full ROM. Absent: tenderness, CVA tenderness (R), CVA tenderness (L), muscle spasm - Neurological Exam Neurological exam: Present: alert, oriented X3, CN II-XII intact, normal gait, r eflexes normal - Psychiatric Psychiatric exam: Present: normal affect - Skin Skin exam: Present: warm, ecchymosis (right upper arm ). Absent: dry, intact ED Course Vital Signs 04/04/19 18:08 Temperature 98.5 F Pulse Rate 91 H Respiratory 16 Rate Blood Pressure 135/76 O2 Sat by Pulse 99 Oximetry ED Medical Decision Making - Lab Data Result diagrams: 04/04/19 19:24 04/04/19 19:24 - Medical Decision Making Patient is alert and oriented 3 and is not in distress with normal vital signs. Lab tests results were reviewed and are unremarkable including platelet levels, PTT and PT levels. Patient was discharged home and advised to follow-up with her primary care physician in 7-10 days for reevaluation or return to the ED immediately if symptoms get worse. - Differential Diagnosis Traumatic ecchymosis; Thrombophlebitis Critical care attestation.: If time is entered above; I have spent that time in minutes in the direct care of this critically ill patient, excluding procedure time. ED Disposition Clinical Impression: Traumatic ecchymosis of right upper arm Qualifiers: Encounter type: initial encounter Qualified Code(s): S40.021A - Contusion of right upper arm, initial encounter Disposition: TO HOME OR SELFCARE Is pt being admited?: No Does the pt Need Aspirin: No Condition: Stable Instructions: Arthralgia (ED) Additional Instructions: FOLLOW UP WITH YOUR PRIMARY CARE PHYSICIAN ADVISED. YOU ARE FREE TO DONATE BLOOD AND OR PLASMA NEEDED Referrals: [facility] [Outside] - 3-5 Days [facility] [Outside] - 3-5 Days Time of Disposition: 20:04 Print Language: NEPALI
== END 2019-04-04 20:10 | disposition home or self-care (01) ==
LOC: ED 17:44
DX: S40.021A Contusion of right upper arm, initial encounter (principal); K21.9 Gastro-esophageal reflux disease without esophagitis; G43.909 Migraine, unspecified, not intractable, without status migrainosus; J45.909 Unspecified asthma, uncomplicated; F17.200 Nicotine dependence, unspecified, uncomplicated; Z90.49 Acquired absence of other specified parts of digestive tract; Z88.6 Allergy status to analgesic agent; X58.XXXA Exposure to other specified factors, initial encounter; Y93.89 Activity, other specified; Y92.89 Other specified places as the place of occurrence of the external cause; Y99.8 Other external cause status
CPT/HCPCS: 36415; 80053; 85025; 85610; 85730; 99283

== ENCOUNTER 2019-05-14 21:05 | Emergency (ER) | payer MEDICAID ==
--- NOTE | 2019-05-14 21:49 | Emergency Department Report ---
Blank Doc - Documentation Documentation: This is a 38-year-old female that presents with bilateral feet pain and swelli ng. Deneis any chest pain or SOB. This initial assessment/diagnostic orders/clinical plan/treatment(s) is/are subject to change based on patient's health status, clinical progression and re-assessment by fellow clinical providers in the ED. Further treatment and workup at subsequent clinical providers discretion. Patient/guardians urged not to elope from the ED as their condition may be serious if not clinically assessed and managed. Initial orders include: 1- Patient sent to [facility] for further evaluation and treatment 2- labs
[2019-05-14 22:15] LABS: Basophils # (Auto) 0.1 K/mm3 (0.0-0.1); Basophils % (Auto) 0.9 % (0.0-1.8); Eosinophils # (Auto) 0.2 K/mm3 (0.0-0.4); Eosinophils % (Auto) 3.2 % (0.0-4.3); Hematocrit 33.3 % (30.3-42.9); Hemoglobin 10.9 gm/dl (10.1-14.3); Lymphocytes # (Auto) 2.1 K/mm3 (1.2-5.4); Lymphocytes % (Auto) 36.4 % (13.4-35.0); Mean Corpuscular HGB Conc 33 % (30-34); Mean Corpuscular Volume 74 fl (79-97); Monocytes # (Auto) 0.6 K/mm3 (0.0-0.8); Monocytes % (Auto) 10.9 % (0.0-7.3); Platelet Count 327 K/mm3 (140-440); Red Cell Distribution Width 18.1 % (13.2-15.2)
[2019-05-14 22:32] LABS: BUN/Creatinine Ratio 11; Blood Urea Nitrogen 8 mg/dL (7-17); Hemolysis Index 7
--- NOTE | 2019-05-14 23:08 | Emergency Department Report ---
ED General Adult HPI - General Chief complaint: Extremity Problem,Nontraumatic Stated complaint: SWOLLEN LEGS AND FEET PAIN Time Seen by Provider: 05/14/19 21:48 Source: patient Mode of arrival: Ambulatory Limitations: No Limitations - History of Present Illness Initial comments: Patient is a 38-year-old female who is presenting with bilateral foot and ankle swelling for the past 3 days. Patient states is been no change in her normal routine. Patient's states that the swelling in tight sensation is worse at night and better in the morning. Patient states it's a tetanus severity as far as pain. She denies any injury or trauma. Patient states she already is on a low salt diet. She denies any chest pain shortness of breath fevers chills nausea vomiting or diarrhea. Patient has a past smoker history of asthma and continues to smoke, GERD, migraines, and pancreatitis. Patient has a past surgical history of 2 C-sections and a cholecystectomy - Related Data Previous Rx's Medication Instructions Recorded Last Taken Type ALBUTEROL NEB's [Proventil 0.083% 2.5 mg IH TID PRN 7 Days neb 03/28/18 Unknown Rx NEBS] Azithromycin [Zithromax Z-ELODIA] 250 mg PO DAILY 5 Days #6 tablet 03/28/18 Unknown Rx Nebulizer and Compressor [Portable 1 each MC 4XD 7 Days each 03/28/18 Unknown Rx Nebulizer System] predniSONE [Deltasone] 40 mg PO QDAY 4 Days #8 tab 03/28/18 Unknown Rx ALBUTEROL Inhaler(NF) [VENTOLIN 2 puff IH Q4-6H PRN #1 inha 03/12/19 Unknown Rx Inhaler(NF)] Azithromycin [Zithromax Z-ELODIA] 250 mg PO DAILY #6 tablet 03/12/19 Unknown Rx Benzonatate [Tessalon Perle] 100 mg PO Q6H PRN #20 capsule 03/12/19 Unknown Rx Prednisone [predniSONE 10 mg 10 mg PO .TAPER #1 tab.ds.pk 03/12/19 Unknown Rx (6-Day Pack, 21 Tabs)] Furosemide [Lasix] 20 mg PO QDAY #7 tablet 05/15/19 Unknown Rx Ketorolac [Toradol] 10 mg PO Q6H PRN #12 tablet 05/15/19 Unknown Rx Allergies Allergy/AdvReac Type Severity Reaction Status Date / Time codeine Allergy Rash Verified 04/04/19 17:54 ED Review of Systems ROS: Stated complaint: SWOLLEN LEGS AND FEET PAIN Other details as noted in HPI Comment: All other systems reviewed and negative ED Past Medical Hx - Past Medical History Previous Medical History?: Yes Hx Hypertension: No Hx CVA: No Hx Heart Attack/AMI: No Hx Congestive Heart Failure: No Hx Diabetes: No Hx Deep Vein Thrombosis: No Hx Pulmonary Embolism: No Hx GERD: Yes Hx Liver Disease: No Hx Renal Disease: No Hx Sickle Cell Disease: No Hx Arthritis: No Hx Headaches / Migraines: Yes Hx Seizures: No Hx Kidney Stones: No Hx Psychiatric Treatment: No Hx Asthma: Yes (pt smokes, i counciled pt to stop) Hx COPD: No Additional medical history: pancreatitis (multiple episodes ), BRONCHITIS. obesity - Surgical History Past Surgical History?: Yes Hx Cholecystectomy: Yes Additional Surgical History: x 2 - Social History Smoking Status: Current Every Day Smoker Substance Use Type: None - Medications Home Medications: Home Medications Medication Instructions Recorded Confirmed Last Taken Type ALBUTEROL NEB's [Proventil 0.083% 2.5 mg IH TID PRN 7 Days neb 03/28/18 Unknown Rx NEBS] Azithromycin [Zithromax Z-ELODIA] 250 mg PO DAILY 5 Days #6 tablet 03/28/18 Unknown Rx Nebulizer and Compressor [Portable 1 each MC 4XD 7 Days each 03/28/18 Unknown Rx Nebulizer System] predniSONE [Deltasone] 40 mg PO QDAY 4 Days #8 tab 03/28/18 Unknown Rx ALBUTEROL Inhaler(NF) [VENTOLIN 2 puff IH Q4-6H PRN #1 inha 03/12/19 Unknown Rx Inhaler(NF)] Azithromycin [Zithromax Z-ELODIA] 250 mg PO DAILY #6 tablet 03/12/19 Unknown Rx Benzonatate [Tessalon Perle] 100 mg PO Q6H PRN #20 capsule 03/12/19 Unknown Rx Prednisone [predniSONE 10 mg 10 mg PO .TAPER #1 tab.ds.pk 03/12/19 Unknown Rx (6-Day Pack, 21 Tabs)] Furosemide [Lasix] 20 mg PO QDAY #7 tablet 05/15/19 Unknown Rx Ketorolac [Toradol] 10 mg PO Q6H PRN #12 tablet 05/15/19 Unknown Rx ED Physical Exam - General Limitations: No Limitations General appearance: alert, in no apparent distress - Head Head exam: Present: atraumatic, normocephalic - Eye Eye exam: Present: normal appearance - ENT ENT exam: Present: mucous membranes moist - Neck Neck exam: Present: normal inspection - Respiratory Respiratory exam: Present: normal lung sounds bilaterally. Absent: respiratory distress, wheezes, rales, rhonchi - Cardiovascular Cardiovascular Exam: Present: regular rate, normal rhythm, normal heart sounds. Absent: systolic murmur, diastolic murmur, rubs, gallop - GI/Abdominal GI/Abdominal exam: Present: soft, normal bowel sounds. Absent: distended, tenderness, guarding, rebound - Extremities Exam Extremities exam: Present: normal inspection, other (2+ bilateral lower extremity edema up to the mid calf.) - Back Exam Back exam: Present: normal inspection - Neurological Exam Neurological exam: Present: alert, oriented X3 - Psychiatric Psychiatric exam: Present: normal affect, normal mood - Skin Skin exam: Present: warm, dry, intact, normal color. Absent: rash ED Course Vital Signs 05/14/19 05/14/19 21:48 23:27 Temperature 98.2 F 98.2 F Pulse Rate 87 75 Respiratory 20 16 Rate Blood Pressure 125/80 Blood Pressure 151/70 [Left] O2 Sat by Pulse 98 Oximetry ED Medical Decision Making - Lab Data Result diagrams: 05/14/19 21:53 05/14/19 21:53 Lab Results 05/14/19 05/14/19 05/14/19 Range/Units 21:53 21:53 21:53 WBC 5.8 (4.5-11.0) K/mm3 RBC 4.50 (3.65-5.03) M/mm3 Hgb 10.9 (10.1-14.3) gm/dl Hct 33.3 (30.3-42.9) % MCV 74 L (79-97) fl MCH 24 L (28-32) pg MCHC 33 (30-34) % RDW 18.1 H (13.2-15.2) % Plt Count 327 (140-440) K/mm3 Lymph % (Auto) 36.4 H (13.4-35.0) % [place] % (Auto) 10.9 H (0.0-7.3) % Eos % (Auto) 3.2 (0.0-4.3) % Baso % (Auto) 0.9 (0.0-1.8) % Lymph # 2.1 (1.2-5.4) K/mm3 [place] # 0.6 (0.0-0.8) K/mm3 Eos # 0.2 (0.0-0.4) K/mm3 Baso # 0.1 (0.0-0.1) K/mm3 Seg Neutrophils % 48.6 (40.0-70.0) % Seg Neutrophils # 2.8 (1.8-7.7) K/mm3 Sodium 139 (137-145) mmol/L Potassium 5.1 H (3.6-5.0) mmol/L Chloride 104.4 (98-107) mmol/L Carbon Dioxide 25 (22-30) mmol/L Anion Gap 15 mmol/L BUN 8 (7-17) mg/dL Creatinine 0.7 (0.7-1.2) mg/dL Estimated GFR > 60 ml/min BUN/Creatinine Ratio 11 % Glucose 113 H (65-100) mg/dL Calcium 9.0 (8.4-10.2) mg/dL HCG, Qual Negative (Negative) Urine Color (Yellow) Urine Turbidity (Clear) Urine pH (5.0-7.0) Ur Specific [place] (1.003-1.030) Urine Protein (Negative) mg/dL Urine Glucose (UA) (Negative) mg/dL Urine Ketones (Negative) mg/dL Urine Blood (Negative) Urine Nitrite (Negative) Urine Bilirubin (Negative) Urine Urobilinogen (<2.0) mg/dL Ur Leukocyte Esterase (Negative) Urine WBC (Auto) (0.0-6.0) /HPF Urine RBC (Auto) (0.0-6.0) /HPF U Epithel Cells (Auto) (0-13.0) /HPF Urine Bacteria (Auto) (Negative) /HPF Amorphous Crystals Urine Mucus /HPF 05/14/19 Range/Units 23:27 WBC (4.5-11.0) K/mm3 RBC (3.65-5.03) M/mm3 Hgb (10.1-14.3) gm/dl Hct (30.3-42.9) % MCV (79-97) fl MCH (28-32) pg MCHC (30-34) % RDW (13.2-15.2) % Plt Count (140-440) K/mm3 Lymph % (Auto) (13.4-35.0) % [place] % (Auto) (0.0-7.3) % Eos % (Auto) (0.0-4.3) % Baso % (Auto) (0.0-1.8) % Lymph # (1.2-5.4) K/mm3 [place] # (0.0-0.8) K/mm3 Eos # (0.0-0.4) K/mm3 Baso # (0.0-0.1) K/mm3 Seg Neutrophils % (40.0-70.0) % Seg Neutrophils # (1.8-7.7) K/mm3 Sodium (137-145) mmol/L Potassium (3.6-5.0) mmol/L Chloride (98-107) mmol/L Carbon Dioxide (22-30) mmol/L Anion Gap mmol/L BUN (7-17) mg/dL Creatinine (0.7-1.2) mg/dL Estimated GFR ml/min BUN/Creatinine Ratio % Glucose (65-100) mg/dL Calcium (8.4-10.2) mg/dL HCG, Qual (Negative) Urine Color Yellow (Yellow) Urine Turbidity Slightly-cloudy (Clear) Urine pH 7.0 (5.0-7.0) Ur Specific [place] 1.015 (1.003-1.030) Urine Protein <15 mg/dl (Negative) mg/dL Urine Glucose (UA) Neg (Negative) mg/dL Urine Ketones Neg (Negative) mg/dL Urine Blood Neg (Negative) Urine Nitrite Neg (Negative) Urine Bilirubin Neg (Negative) Urine Urobilinogen < 2.0 (<2.0) mg/dL Ur Leukocyte Esterase Sm (Negative) Urine WBC (Auto) 1.0 (0.0-6.0) /HPF Urine RBC (Auto) 3.0 (0.0-6.0) /HPF U Epithel Cells (Auto) 21.0 H (0-13.0) /HPF Urine Bacteria (Auto) 2+ (Negative) /HPF Amorphous Crystals 1+ Urine Mucus Few /HPF - Medical Decision Making Patient likely with dependent edema secondary to fluid overload. Patient has no signs and symptoms of congestive heart failure is chest pain-free. Patient started on low dose of Lasix for the next several days and the patient will be discharged home with follow-up with primary care. - Differential Diagnosis dependent edema, cellulitis, nephrotic syndrome, congestive heart failure Critical care attestation.: If time is entered above; I have spent that time in minutes in the direct care of this critically ill patient, excluding procedure time. ED Disposition Clinical Impression: Dependent edema Disposition: DC-01 TO HOME OR SELFCARE Is pt being admited?: No Does the pt Need Aspirin: No Condition: Stable Instructions: Leg Edema (ED) Prescriptions: Furosemide [Lasix] 20 mg PO QDAY #7 tablet Referrals: TITI NATARAJAN MD [Primary Care Provider] - 3-5 Days Time of Disposition: 00:22
[2019-05-14 23:54] LABS: Amorphous Crystals,Urine 1+; Bacteria,Urine 2+ /HPF (Negative); Bilirubin,Urine NEG (Negative); Blood,Urine NEG (Negative); Color,Urine Yellow (Yellow); Mucus,Urine FEW /HPF; Protein,Urine <15 mg/dL mg/dL (Negative); Urobilinogen,Urine < 2.0 mg/dL (<2.0)
[2019-05-15 00:53] VITALS: BP 143/74
== END 2019-05-15 00:40 | disposition home or self-care (01) ==
LOC: ED 21:05
DX: M79.672 Pain in left foot (principal); M79.671 Pain in right foot; R60.9 Edema, unspecified; K21.9 Gastro-esophageal reflux disease without esophagitis; G43.909 Migraine, unspecified, not intractable, without status migrainosus; J45.909 Unspecified asthma, uncomplicated; F17.200 Nicotine dependence, unspecified, uncomplicated; Z90.49 Acquired absence of other specified parts of digestive tract; Z98.890 Other specified postprocedural states; Z79.899 Other long term (current) drug therapy; Z88.6 Allergy status to analgesic agent
CPT/HCPCS: 36415; 80048; 81001; 84703; 85025; 99283

== ENCOUNTER 2019-07-06 12:46 | Emergency (ER) | payer MEDICAID ==
[2019-07-06 14:09] VITALS: BP 121/67
[2019-07-06] MEDS ORDERED: TORADOL IM ONE (14:22)
[2019-07-06] MEDS ORDERED: ZANAFLEX PO ONE (14:23)
--- NOTE | 2019-07-06 14:25 | Emergency Department Report ---
ED Back Pain/Injury HPI - General Chief Complaint: Back Pain/Injury Stated Complaint: BACK PAIN (R) SIDE Time Seen by Provider: 07/06/19 14:19 Source: patient Limitations: No Limitations - History of Present Illness Initial Comments: 38 y/o female back pain since last. Reports that she was moving furniture. Has taking Tylenol extra strength last dose 10:00. Denies any trauma. MD Complaint: back pain, back injury -: Last night Place: home Radiation: none Severity scale (0 -10): 10 Quality: burning, sharp Consistency: constant Improves With: supine Worsens With: movement, deep breaths/cough Context: while lifting Associated Symptoms: denies: numbness, difficulty urinating, incontinence, fever/chills Treatments Prior to Arrival: acetaminophen - Related Data Previous Rx's Medication Instructions Recorded Last Taken Type ALBUTEROL NEB's [Proventil 0.083% 2.5 mg IH TID PRN 7 Days neb 03/28/18 Unknown Rx NEBS] Azithromycin [Zithromax Z-ELODIA] 250 mg PO DAILY 5 Days #6 tablet 03/28/18 Unknown Rx Nebulizer and Compressor [Portable 1 each MC 4XD 7 Days each 03/28/18 Unknown Rx Nebulizer System] predniSONE [Deltasone] 40 mg PO QDAY 4 Days #8 tab 03/28/18 Unknown Rx ALBUTEROL Inhaler(NF) [VENTOLIN 2 puff IH Q4-6H PRN #1 inha 03/12/19 Unknown Rx Inhaler(NF)] Azithromycin [Zithromax Z-ELODIA] 250 mg PO DAILY #6 tablet 03/12/19 Unknown Rx Benzonatate [Tessalon Perle] 100 mg PO Q6H PRN #20 capsule 03/12/19 Unknown Rx Prednisone [predniSONE 10 mg 10 mg PO .TAPER #1 tab.ds.pk 03/12/19 Unknown Rx (6-Day Pack, 21 Tabs)] Furosemide [Lasix] 20 mg PO QDAY #7 tablet 05/15/19 Unknown Rx Ketorolac [Toradol] 10 mg PO Q6H PRN #12 tablet 05/15/19 Unknown Rx Baclofen [Lioresal] 10 mg PO TID #15 tab 07/06/19 Unknown Rx Ibuprofen [Motrin 800 MG tab] 800 mg PO Q8HR PRN #30 tablet 07/06/19 Unknown Rx Allergies Allergy/AdvReac Type Severity Reaction Status Date / Time codeine Allergy Rash Verified 04/04/19 17:54 ED Review of Systems ROS: Stated complaint: BACK PAIN (R) SIDE Other details as noted in HPI Comment: All other systems reviewed and negative ED Past Medical Hx - Past Medical History Hx Hypertension: No Hx CVA: No Hx Heart Attack/AMI: No Hx Congestive Heart Failure: No Hx Diabetes: No Hx Deep Vein Thrombosis: No Hx Pulmonary Embolism: No Hx GERD: Yes Hx Liver Disease: No Hx Renal Disease: No Hx Sickle Cell Disease: No Hx Arthritis: No Hx Headaches / Migraines: Yes Hx Seizures: No Hx Kidney Stones: No Hx Psychiatric Treatment: No Hx Asthma: Yes (pt smokes, i counciled pt to stop) Hx COPD: No Additional medical history: pancreatitis (multiple episodes ), BRONCHITIS. obesity - Surgical History Hx Cholecystectomy: Yes Additional Surgical History: x 2 - Social History Smoking Status: Current Some Day Smoker Substance Use Type: None - Medications Home Medications: Home Medications Medication Instructions Recorded Confirmed Last Taken Type ALBUTEROL NEB's [Proventil 0.083% 2.5 mg IH TID PRN 7 Days neb 03/28/18 Unknown Rx NEBS] Azithromycin [Zithromax Z-ELODIA] 250 mg PO DAILY 5 Days #6 tablet 03/28/18 Unknown Rx Nebulizer and Compressor [Portable 1 each MC 4XD 7 Days each 03/28/18 Unknown Rx Nebulizer System] predniSONE [Deltasone] 40 mg PO QDAY 4 Days #8 tab 03/28/18 Unknown Rx ALBUTEROL Inhaler(NF) [VENTOLIN 2 puff IH Q4-6H PRN #1 inha 03/12/19 Unknown Rx Inhaler(NF)] Azithromycin [Zithromax Z-ELODIA] 250 mg PO DAILY #6 tablet 03/12/19 Unknown Rx Benzonatate [Tessalon Perle] 100 mg PO Q6H PRN #20 capsule 03/12/19 Unknown Rx Prednisone [predniSONE 10 mg 10 mg PO .TAPER #1 tab.ds.pk 03/12/19 Unknown Rx (6-Day Pack, 21 Tabs)] Furosemide [Lasix] 20 mg PO QDAY #7 tablet 05/15/19 Unknown Rx Ketorolac [Toradol] 10 mg PO Q6H PRN #12 tablet 05/15/19 Unknown Rx Baclofen [Lioresal] 10 mg PO TID #15 tab 07/06/19 Unknown Rx Ibuprofen [Motrin 800 MG tab] 800 mg PO Q8HR PRN #30 tablet 07/06/19 Unknown Rx ED Physical Exam - General Limitations: No Limitations General appearance: alert, in no apparent distress - Head Head exam: Present: atraumatic, normocephalic - Eye Eye exam: Present: normal appearance - ENT ENT exam: Present: mucous membranes moist - Neck Neck exam: Present: normal inspection - Cardiovascular Cardiovascular Exam: Absent: bradycardia - Back Exam Back exam: Present: full ROM, tenderness, muscle spasm, paraspinal tenderness - Neurological Exam Neurological exam: Present: alert, oriented X3 - Psychiatric Psychiatric exam: Present: normal affect, normal mood - Skin Skin exam: Present: warm, dry, intact, normal color. Absent: rash ED Course Vital Signs 07/06/19 14:07 Temperature 97.9 F Pulse Rate 91 H Respiratory 16 Rate Blood Pressure 121/67 O2 Sat by Pulse 100 Oximetry ED Medical Decision Making - Medical Decision Making 38 y/o female back pain since last. Reports that she was moving furniture. Has taking Tylenol extra strength last dose 10:00. Denies any trauma. Tordol 30mg and Zanflex 4 mg. Discharge home on Baclophen and ibuprofen. Critical care attestation.: If time is entered above; I have spent that time in minutes in the direct care of this critically ill patient, excluding procedure time. ED Disposition Clinical Impression: Severely overweight Back pain Qualifiers: Back pain location: thoracic back pain Chronicity: acute Back pain laterality: unspecified Qualified Code(s): M54.6 - Pain in thoracic spine Disposition: DC-01 TO HOME OR SELFCARE Is pt being admited?: No Does the pt Need Aspirin: No Condition: Stable Instructions: Acute Low Back Pain (ED), Obesity (ED) Additional Instructions: Take meds as prescribed. Follow up with a Primary Care provider. Prescriptions: Baclofen [Lioresal] 10 mg PO TID #15 tab Ibuprofen [Motrin 800 MG tab] 800 mg PO Q8HR PRN #30 tablet PRN Reason: Pain , Severe (7-10) Referrals: [facility] [Provider Group] - 3-5 Days
== END 2019-07-06 15:26 | disposition home or self-care (01) ==
LOC: ED 12:46
DX: M54.89 Other dorsalgia (principal); K21.9 Gastro-esophageal reflux disease without esophagitis; G43.909 Migraine, unspecified, not intractable, without status migrainosus; J45.909 Unspecified asthma, uncomplicated; F17.200 Nicotine dependence, unspecified, uncomplicated; Z90.49 Acquired absence of other specified parts of digestive tract; Z79.899 Other long term (current) drug therapy; Z88.6 Allergy status to analgesic agent
CPT/HCPCS: 96372; 99282; J1885

== ENCOUNTER 2020-02-02 17:58 | Emergency (ER) | payer MEDICAID | END 2020-02-02 21:00 | disposition left against medical advice (07) | LOC: ED 17:58 | DX: F41.0 Panic disorder [episodic paroxysmal anxiety] (principal); Z53.21 Procedure and treatment not carried out due to patient leaving prior to being seen by health care provider ==

== ENCOUNTER 2020-05-06 20:15 | Outpatient (CLI) | payer MEDICAID ==
--- NOTE | 2020-05-06 20:53 | XRay Report ---
RIGHT KNEE 3 VIEWS INDICATION / CLINICAL INFORMATION: Fall with right knee pain. COMPARISON: None available. FINDINGS: BONES / JOINT(S): There are [id number] tricompartmental degenerative changes, most prominent in volving the patellofemoral joint. There is no evidence of fracture, subluxation or joint effusion. SOFT TISSUES: No significant abnormality. ADDITIONAL FINDINGS: None. Signer Name: Myke Barclay MD Signed: 05/06/2020 8:49 PM Workstation Name: [email or web address]
== END 2020-05-06 20:16 | disposition home or self-care (01) ==
LOC: XRAY 20:15
PROVIDERS: ATTEND Internal Medicine
DX: M17.11 Unilateral primary osteoarthritis, right knee (principal)

== ENCOUNTER 2020-06-22 21:25 | Emergency (ER) | payer MEDICAID ==
--- NOTE | 2020-06-23 02:57 | Emergency Department Report ---
- General Chief complaint: Skin/Abscess/Foreign Body Stated complaint: INSECT BITE Time Seen by Provider: 06/23/20 02:17 Source: patient Mode of arrival: Ambulatory Limitations: No Limitations - History of Present Illness Initial comments: 39-year-old female presents emerged department complaining of possible insect bite to right lower back with tenderness no discharge. MD complaint: insect bite/sting Tetanus Up to Date: no Severity: mild Quality: dull Consistency: constant Improves with: none Worsens with: none Context: none Treatments Prior to Arrival: none - Related Data Previous Rx's Medication Instructions Recorded Last Taken Type Albuterol Sulfate [Proair 90 mcg IH QID PRN #1 aer.pow.ba 08/19/19 Unknown Rx Respiclick] Benzonatate [Tessalon Perles] 100 mg PO Q12H PRN #20 capsule 08/19/19 Unknown Rx Cetirizine HCl [ZyrTEC] 10 mg PO DAILY #30 capsule 08/19/19 Unknown Rx Fluticasone [Flonase] 1 spray NS QDAY #1 bottle 08/19/19 Unknown Rx predniSONE [Deltasone] 20 mg PO DAILY #5 tablet 08/19/19 Unknown Rx Erythromycin [Erythromycin Ophth 1 strip OU QID 10 Days #1 tube 08/27/19 Unknown Rx Oint] Ibuprofen [Motrin 800 MG tab] 800 mg PO Q8HR PRN #15 tablet 08/27/19 Unknown Rx cephALEXin [Keflex] 500 mg PO Q6HR #28 capsule 06/23/20 Unknown Rx Allergies Allergy/AdvReac Type Severity Reaction Status Date / Time codeine Allergy Rash Verified 08/19/19 07:28 Abscess Boil HPI - HPI Chief Complaint: Skin/Abscess/Foreign Body Stated Complaint: INSECT BITE Time Seen by Provider: 06/23/20 02:17 Home Medications: Previous Rx's Medication Instructions Recorded Last Taken Type Albuterol Sulfate [Proair 90 mcg IH QID PRN #1 aer.pow.ba 08/19/19 Unknown Rx Respiclick] Benzonatate [Tessalon Perles] 100 mg PO Q12H PRN #20 capsule 08/19/19 Unknown Rx Cetirizine HCl [ZyrTEC] 10 mg PO DAILY #30 capsule 08/19/19 Unknown Rx Fluticasone [Flonase] 1 spray NS QDAY #1 bottle 08/19/19 Unknown Rx predniSONE [Deltasone] 20 mg PO DAILY #5 tablet 08/19/19 Unknown Rx Erythromycin [Erythromycin Ophth 1 strip OU QID 10 Days #1 tube 08/27/19 Unknown Rx Oint] Ibuprofen [Motrin 800 MG tab] 800 mg PO Q8HR PRN #15 tablet 08/27/19 Unknown Rx cephALEXin [Keflex] 500 mg PO Q6HR #28 capsule 06/23/20 Unknown Rx Allergies/Adverse Reactions: Allergies Allergy/AdvReac Type Severity Reaction Status Date / Time codeine Allergy Rash Verified 08/19/19 07:28 ED Review of Systems ROS: Stated complaint: INSECT BITE Other details as noted in HPI Comment: All other systems reviewed and negative ED Past Medical Hx - Past Medical History Previous Medical History?: Yes Hx Hypertension: No Hx CVA: No Hx Heart Attack/AMI: No Hx Congestive Heart Failure: No Hx Diabetes: No Hx Deep Vein Thrombosis: No Hx Pulmonary Embolism: No Hx GERD: Yes Hx Liver Disease: No Hx Renal Disease: No Hx Sickle Cell Disease: No Hx Arthritis: No Hx Headaches / Migraines: Yes Hx Seizures: No Hx Kidney Stones: No Hx Psychiatric Treatment: No Hx Asthma: Yes (pt smokes, i counciled pt to stop) Hx COPD: No Additional medical history: pancreatitis (multiple episodes ), BRONCHITIS. obesity - Surgical History Hx Cholecystectomy: Yes Additional Surgical History: x 2 - Social History Smoking Status: Current Every Day Smoker Substance Use Type: Methamphetamines - Medications Home Medications: Home Medications Medication Instructions Recorded Confirmed Last Taken Type Albuterol Sulfate [Proair 90 mcg IH QID PRN #1 aer.pow.ba 08/19/19 Unknown Rx Respiclick] Benzonatate [Tessalon Perles] 100 mg PO Q12H PRN #20 capsule 08/19/19 Unknown Rx Cetirizine HCl [ZyrTEC] 10 mg PO DAILY #30 capsule 08/19/19 Unknown Rx Fluticasone [Flonase] 1 spray NS QDAY #1 bottle 08/19/19 Unknown Rx predniSONE [Deltasone] 20 mg PO DAILY #5 tablet 08/19/19 Unknown Rx Erythromycin [Erythromycin Ophth 1 strip OU QID 10 Days #1 tube 08/27/19 Unknown Rx Oint] Ibuprofen [Motrin 800 MG tab] 800 mg PO Q8HR PRN #15 tablet 08/27/19 Unknown Rx cephALEXin [Keflex] 500 mg PO Q6HR #28 capsule 06/23/20 Unknown Rx ED Physical Exam - General Limitations: No Limitations General appearance: alert, in no apparent distress - Head Head exam: Present: atraumatic, normocephalic - Eye Eye exam: Present: normal appearance, PERRL, EOMI Pupils: Present: normal accommodation - ENT ENT exam: Present: mucous membranes moist - Neck Neck exam: Present: normal inspection - Respiratory Respiratory exam: Present: normal lung sounds bilaterally. Absent: respiratory distress - Cardiovascular Cardiovascular Exam: Present: regular rate, normal rhythm. Absent: systolic murmur, diastolic murmur, rubs, gallop - GI/Abdominal GI/Abdominal exam: Present: soft, normal bowel sounds - Extremities Exam Extremities exam: Present: normal inspection - Back Exam Back exam: Present: normal inspection. Absent: CVA tenderness (R), CVA tenderness (L) - Neurological Exam Neurological exam: Present: alert, oriented X3, CN II-XII intact, normal gait - Psychiatric Psychiatric exam: Present: normal affect, normal mood - Skin Skin exam: Present: warm, dry, erythema (With some induration to the right lower back 2.5 cm. No abscess appreciated. No pustules.). Absent: rash Critical care attestation.: If time is entered above; I have spent that time in minutes in the direct care of this critically ill patient, excluding procedure time. ED Disposition Clinical Impression: Insect bite Disposition: DC-01 TO HOME OR SELFCARE Is pt being admited?: No Does the pt Need Aspirin: No Condition: Stable Instructions: Insect Bite or Sting (ED) Prescriptions: cephALEXin [Keflex] 500 mg PO Q6HR #28 capsule Referrals: PRIMARY CARE, [Primary Care Provider] - 3-5 Days
== END 2020-06-23 03:10 | disposition home or self-care (01) ==
LOC: ED 21:25
DX: S30.860A Insect bite (nonvenomous) of lower back and pelvis, initial encounter (principal); K21.9 Gastro-esophageal reflux disease without esophagitis; G43.909 Migraine, unspecified, not intractable, without status migrainosus; J45.909 Unspecified asthma, uncomplicated; F17.200 Nicotine dependence, unspecified, uncomplicated; F15.10 Other stimulant abuse, uncomplicated; Z79.899 Other long term (current) drug therapy; Z88.6 Allergy status to analgesic agent; Z90.49 Acquired absence of other specified parts of digestive tract; W57.XXXA Bitten or stung by nonvenomous insect and other nonvenomous arthropods, initial encounter; Y93.89 Activity, other specified; Y92.89 Other specified places as the place of occurrence of the external cause; Y99.8 Other external cause status
CPT/HCPCS: 99282

== ENCOUNTER 2020-08-09 19:08 | Emergency (ER) | payer MEDICAID ==
[2020-08-09 19:25] VITALS: BP 126/75
[2020-08-09] MEDS ORDERED: predniSONE 20 MG TAB PO ONE (20:00)
[2020-08-09] MEDS ORDERED: ACETAMINOPHEN 500 MG TAB PO ONE (20:00)
[2020-08-09] MEDS ORDERED: IBUPROFEN 600 MG TAB PO ONE (20:01)
[2020-08-09] MEDS ORDERED: AMITRIPTYLINE 25 MG TAB PO ONE (20:02)
--- NOTE | 2020-08-09 20:27 | Emergency Department Report ---
ED Extremity Problem HPI - General Chief complaint: Extremity Problem,Nontraumatic Stated complaint: PAIN BOTH FEET/BURNING REDNESS Source: patient Mode of arrival: Ambulatory Limitations: No Limitations - History of Present Illness Initial comments: Patient is a 39-year-old white female with a history of migraine headaches, GERD, chronic tobacco abuse, asthma, pancreatitis who presents to the ED with complaint of acute onset persistent nontraumatic low back pain that radiates to the lower extremities bilaterally. Patient also complains of worsening bilateral plantar foot pain with a burning sensation for the last 12 hours. Patient states that the pain is constant whether at rest or with ambulation and the burning sensation has worsened and that the pain radiates proximally towards the knees. Patient denies fall, traumatic injury, dizziness, syncope, chest pain, shortness of breath, numbness and weakness of lower extremities bilaterally, dysuria, urinary frequency and urgency, hematuria, heavy lifting, fever, chills, cough or abdominal pain. MD Complaint: extremity pain (Bilateral foot and lower leg pain), other (Low back pain) -: Sudden, hour(s) (12) Location: bilateral lower extremity, other (low back) -: Yes myalgia, Yes arthralgia Radiation: distal Severity scale (0 -10): 8 Quality: burning, aching, sharp Consistency: constant Improves with: nothing Worsens with: nothing Associated Symptoms: denies other symptoms, myalgias, arthralgias. denies: chest pain, fever, rash - Related Data Previous Rx's Medication Instructions Recorded Last Taken Type Albuterol Sulfate [Proair 90 mcg IH QID PRN #1 aer.pow.ba 08/19/19 Unknown Rx Respiclick] Benzonatate [Tessalon Perles] 100 mg PO Q12H PRN #20 capsule 08/19/19 Unknown Rx Cetirizine HCl [ZyrTEC] 10 mg PO DAILY #30 capsule 08/19/19 Unknown Rx Fluticasone [Flonase] 1 spray NS QDAY #1 bottle 08/19/19 Unknown Rx Erythromycin [Erythromycin Ophth 1 strip OU QID 10 Days #1 tube 08/27/19 Unknown Rx Oint] cephALEXin [Keflex] 500 mg PO Q6HR #28 capsule 06/23/20 Unknown Rx Gabapentin 300 mg PO Q12H PRN #40 capsule 09/08/20 Unknown Rx Ibuprofen [Motrin 800 MG tab] 800 mg PO Q8HR PRN #30 tablet 08/09/20 Unknown Rx predniSONE [Deltasone] 60 mg PO DAILY #15 tablet 08/09/20 Unknown Rx Allergies Allergy/AdvReac Type Severity Reaction Status Date / Time codeine Allergy Rash Verified 08/19/19 07:28 ED Review of Systems ROS: Stated complaint: PAIN BOTH FEET/BURNING REDNESS Other details as noted in HPI Constitutional: denies: chills, fever Eyes: denies: eye pain, eye discharge, vision change ENT: denies: ear pain, throat pain Respiratory: denies: cough, shortness of breath, wheezing Cardiovascular: denies: chest pain, palpitations Endocrine: no symptoms reported Gastrointestinal: denies: abdominal pain, nausea, diarrhea Genitourinary: denies: urgency, dysuria, discharge Musculoskeletal: back pain (Low back pain), arthralgia (Bilateral feet and lower leg pain). denies: joint swelling Skin: denies: rash, lesions Neurological: denies: headache, weakness, paresthesias Psychiatric: denies: anxiety, depression Hematological/Lymphatic: denies: easy bleeding, easy bruising ED Past Medical Hx - Past Medical History Hx Hypertension: No Hx CVA: No Hx Heart Attack/AMI: No Hx Congestive Heart Failure: No Hx Diabetes: No Hx Deep Vein Thrombosis: No Hx Pulmonary Embolism: No Hx GERD: Yes Hx Liver Disease: No Hx Renal Disease: No Hx Sickle Cell Disease: No Hx Arthritis: No Hx Headaches / Migraines: Yes Hx Seizures: No Hx Kidney Stones: No Hx Psychiatric Treatment: No Hx Asthma: Yes (pt smokes, i counciled pt to stop) Hx COPD: No Additional medical history: pancreatitis (multiple episodes ), BRONCHITIS. obesity - Surgical History Hx Cholecystectomy: Yes Additional Surgical History: x 2 - Social History Smoking Status: Never Smoker Substance Use Type: None - Medications Home Medications: Home Medications Medication Instructions Recorded Confirmed Last Taken Type Albuterol Sulfate [Proair 90 mcg IH QID PRN #1 aer.pow.ba 08/19/19 Unknown Rx Respiclick] Benzonatate [Tessalon Perles] 100 mg PO Q12H PRN #20 capsule 08/19/19 Unknown Rx Cetirizine HCl [ZyrTEC] 10 mg PO DAILY #30 capsule 09/18/19 Unknown Rx Fluticasone [Flonase] 1 spray NS QDAY #1 bottle 08/19/19 Unknown Rx Erythromycin [Erythromycin Ophth 1 strip OU QID 10 Days #1 tube 08/27/19 Unknown Rx Oint] cephALEXin [Keflex] 500 mg PO Q6HR #28 capsule 06/23/20 Unknown Rx Gabapentin 300 mg PO Q12H PRN #40 capsule 08/09/20 Unknown Rx Ibuprofen [Motrin 800 MG tab] 800 mg PO Q8HR PRN #30 tablet 08/09/20 Unknown Rx predniSONE [Deltasone] 60 mg PO DAILY #15 tablet 08/09/20 Unknown Rx ED Physical Exam - General Limitations: No Limitations General appearance: alert, in no apparent distress - Head Head exam: Present: atraumatic, normocephalic, normal inspection - Eye Eye exam: Present: normal appearance, PERRL, EOMI Pupils: Present: normal accommodation - ENT ENT exam: Present: normal exam, normal orophraynx, mucous membranes moist, TM's normal bilaterally, normal external ear exam - Neck Neck exam: Present: normal inspection, full ROM - Respiratory Respiratory exam: Present: normal lung sounds bilaterally. Absent: respiratory distress, wheezes, rales, chest wall tenderness - Cardiovascular Cardiovascular Exam: Present: regular rate, normal rhythm, normal heart sounds. Absent: systolic murmur, diastolic murmur, rubs, gallop - GI/Abdominal GI/Abdominal exam: Present: soft, normal bowel sounds. Absent: tenderness, guarding, hyperactive bowel sounds, hypoactive bowel sounds - Extremities Exam Extremities exam: Present: normal inspection, full ROM, tenderness (Palpable bilateral plantar foot tenderness), normal capillary refill - Back Exam Back exam: Present: normal inspection, full ROM, tenderness (Palpable lumbosacral paraspinal musculoskeletal tenderness), muscle spasm, paraspinal tenderness. Absent: CVA tenderness (L), vertebral tenderness - Neurological Exam Neurological exam: Present: alert, oriented X3, CN II-XII intact, normal gait, reflexes normal - Psychiatric Psychiatric exam: Present: normal affect, normal mood - Skin Skin exam: Present: warm, dry, intact, normal color. Absent: rash ED Course Vital Signs 08/09/20 19:23 Temperature 98.1 F Pulse Rate 96 H Respiratory 20 Rate Blood Pressure 126/75 O2 Sat by Pulse 100 Oximetry ED Medical Decision Making - Medical Decision Making This is a 39-year-old white female with a history of migraine headaches, GERD, chronic tobacco abuse, asthma, pancreatitis who presents to the ED with complaint of acute onset persistent nontraumatic low back pain that radiates to the lower extremities bilaterally. Patient also complains of worsening bilateral plantar foot pain with a burning sensation for the last 12 hours. Patient states that the pain is constant whether at rest or with ambulation and the burning sensation has worsened and that the pain radiates proximally towards the knees. In the ED, patient is alert and oriented x3 and is not in distress. Patient was treated for pain in the ED and on reevaluation, patient's pain is well controlled medication. Patient will discharge home on pain medications and advised to follow-up with her primary care physician in 5 to 7 days for reevaluation or return to the ED immediately if symptoms get worse. - Differential Diagnosis Sciatica; peripheral neuropathy; plantar fasciitis; muscle spasm Critical care attestation.: If time is entered above; I have spent that time in minutes in the direct care of this critically ill patient, excluding procedure time. ED Disposition Clinical Impression: Bilateral plantar fasciitis Acute low back pain with sciatica Qualifiers: Back pain laterality: bilateral Sciatica laterality: bilateral sciatica Qualified Code(s): M54.42 - Lumbago with sciatica, left side; M54.41 - Lumbago with sciatica, right side Peripheral neuropathy Qualifiers: Peripheral neuropathy type: polyneuropathy, unspecified Qualified Code(s): G62.9 - Polyneuropathy, unspecified Disposition: DC-01 TO HOME OR SELFCARE Is pt being admited?: No Does the pt Need Aspirin: No Condition: Stable Instructions: Peripheral Neuropathy (ED), Paresthesia (ED), Plantar Fasciitis (ED), Acute Low Back Pain (ED), Lumbar Radiculopathy (ED) Additional Instructions: Take medications with food, room plenty of fluids and follow-up with your primary care physician in 7 to 10 days for reevaluation. Return to the ED immediately if symptoms get worse. Prescriptions: predniSONE [Deltasone] 60 mg PO DAILY #15 tablet Gabapentin 300 mg PO Q12H PRN #40 capsule PRN Reason: Paresthesia Ibuprofen [Motrin 800 MG tab] 800 mg PO Q8HR PRN #30 tablet PRN Reason: Pain , Severe (7-10) Referrals: [facility] [Provider Group] - 3-5 Days Time of Disposition: 20:27 Print Language: ANGOLAN
== END 2020-08-09 21:31 | disposition home or self-care (01) ==
LOC: ED 19:08
DX: M54.41 Lumbago with sciatica, right side (principal); M54.42 Lumbago with sciatica, left side; G62.9 Polyneuropathy, unspecified; M72.2 Plantar fascial fibromatosis; K21.9 Gastro-esophageal reflux disease without esophagitis; G43.909 Migraine, unspecified, not intractable, without status migrainosus; J45.909 Unspecified asthma, uncomplicated; Z90.49 Acquired absence of other specified parts of digestive tract; Z98.890 Other specified postprocedural states; Z79.899 Other long term (current) drug therapy; Z88.4 Allergy status to anesthetic agent
CPT/HCPCS: 99282; J7512

== ENCOUNTER 2021-02-14 23:18 | Emergency (ER) | payer MEDICAID ==
[2021-02-14] MEDS ORDERED: predniSONE 20 MG TAB PO ONE (23:59)
[2021-02-14] MEDS ORDERED: METOCLOPRAMIDE 10 MG TAB PO ONE (23:59)
[2021-02-14] MEDS ORDERED: diphenhydrAMINE 25 MG CAP PO ONE (23:59)
--- NOTE | 2021-02-15 00:07 | Emergency Department Report ---
ED General Adult HPI - General Chief complaint: Allergic Reaction Stated complaint: DENTAL PAIN Time Seen by Provider: 02/14/21 23:59 Source: patient Mode of arrival: Ambulatory Limitations: No Limitations - History of Present Illness Initial comments: Patient 40-year-old white female who presents for allergic reaction. [place] they started to vape she started to break out with a rash to bilateral arms and chest patient denies shortness of breath no dizziness no headache no lightheadedness no nausea vomiting. Patient presented self to ED ambulatory, But no acute distress. Rash is red smooth no weeping no fever , no open lesions. Patient does endorse allergic reaction similar a few years back that resolved with rest. - Related Data Previous Rx's Medication Instructions Recorded Last Taken Type Albuterol Sulfate [Proair 90 mcg IH QID PRN #1 aer.pow.ba 08/19/19 Unknown Rx Respiclick] Benzonatate [Tessalon Perles] 100 mg PO Q12H PRN #20 capsule 08/19/19 Unknown Rx Cetirizine HCl [ZyrTEC] 10 mg PO DAILY #30 capsule 08/19/19 Unknown Rx Fluticasone [Flonase] 1 spray NS QDAY #1 bottle 08/19/19 Unknown Rx Erythromycin [Erythromycin Ophth 1 strip OU QID 10 Days #1 tube 08/27/19 Unknown Rx Oint] cephALEXin [Keflex] 500 mg PO Q6HR #28 capsule 06/23/20 Unknown Rx Gabapentin 300 mg PO Q12H PRN #40 capsule 08/09/20 Unknown Rx Ibuprofen [Motrin 800 MG tab] 800 mg PO Q8HR PRN #30 tablet 08/09/20 Unknown Rx predniSONE [Deltasone] 60 mg PO DAILY #15 tablet 08/09/20 Unknown Rx Metoclopramide [Reglan] 10 mg PO Q6H PRN #21 tablet 02/15/21 Unknown Rx diphenhydrAMINE [Benadryl CAP] 25 mg PO Q8HR PRN #21 capsule 02/15/21 Unknown Rx predniSONE [Deltasone] 40 mg PO QDAY 5 Days #10 tab 02/15/21 Unknown Rx Allergies Allergy/AdvReac Type Severity Reaction Status Date / Time codeine Allergy Rash Verified 08/19/19 07:28 ED Review of Systems ROS: Stated complaint: DENTAL PAIN Other details as noted in HPI Constitutional: denies: chills, fever Eyes: denies: eye pain, eye discharge, vision change ENT: denies: ear pain, throat pain Respiratory: denies: cough, shortness of breath, wheezing Cardiovascular: denies: chest pain, palpitations Endocrine: no symptoms reported Gastrointestinal: denies: abdominal pain, nausea, diarrhea Genitourinary: denies: urgency, dysuria, discharge Musculoskeletal: denies: back pain, joint swelling, arthralgia Skin: rash, pruritus. denies: change in color, change in hair/nails Neurological: denies: headache, weakness, paresthesias Psychiatric: anxiety. denies: depression Hematological/Lymphatic: denies: easy bleeding, easy bruising ED Past Medical Hx - Past Medical History Previous Medical History?: Yes Hx Hypertension: No Hx CVA: No Hx Heart Attack/AMI: No Hx Congestive Heart Failure: No Hx Diabetes: No Hx Deep Vein Thrombosis: No Hx Pulmonary Embolism: No Hx GERD: Yes Hx Liver Disease: No Hx Renal Disease: No Hx Sickle Cell Disease: No Hx Arthritis: No Hx Headaches / Migraines: Yes Hx Seizures: No Hx Kidney Stones: No Hx Psychiatric Treatment: No Hx Asthma: Yes (pt smokes, i counciled pt to stop) Hx COPD: No Additional medical history: pancreatitis (multiple episodes ), BRONCHITIS. obesity - Surgical History Past Surgical History?: Yes Hx Cholecystectomy: Yes Additional Surgical History: x 2 - Social History Smoking Status: Current Every Day Smoker Substance Use Type: None - Medications Home Medications: Home Medications Medication Instructions Recorded Confirmed Last Taken Type Albuterol Sulfate [Proair 90 mcg IH QID PRN #1 aer.pow.ba 08/19/19 Unknown Rx Respiclick] Benzonatate [Tessalon Perles] 100 mg PO Q12H PRN #20 capsule 08/19/19 Unknown Rx Cetirizine HCl [ZyrTEC] 10 mg PO DAILY #30 capsule 08/19/19 Unknown Rx Fluticasone [Flonase] 1 spray NS QDAY #1 bottle 08/19/19 Unknown Rx Erythromycin [Erythromycin Ophth 1 strip OU QID 10 Days #1 tube 08/27/19 Unknown Rx Oint] cephALEXin [Keflex] 500 mg PO Q6HR #28 capsule 06/23/20 Unknown Rx Gabapentin 300 mg PO Q12H PRN #40 capsule 08/09/20 Unknown Rx Ibuprofen [Motrin 800 MG tab] 800 mg PO Q8HR PRN #30 tablet 08/09/20 Unknown Rx predniSONE [Deltasone] 60 mg PO DAILY #15 tablet 08/09/20 Unknown Rx Metoclopramide [Reglan] 10 mg PO Q6H PRN #21 tablet 02/15/21 Unknown Rx diphenhydrAMINE [Benadryl CAP] 25 mg PO Q8HR PRN #21 capsule 02/15/21 Unknown Rx predniSONE [Deltasone] 40 mg PO QDAY 5 Days #10 tab 02/15/21 Unknown Rx ED Physical Exam - General Limitations: No Limitations General appearance: alert, in no apparent distress - Head Head exam: Present: atraumatic, normocephalic - Eye Eye exam: Present: normal appearance, PERRL, EOMI Pupils: Present: normal accommodation - ENT ENT exam: Present: normal exam, normal orophraynx, mucous membranes moist, TM's normal bilaterally, normal external ear exam - Neck Neck exam: Present: normal inspection, full ROM. Absent: tenderness, meningismus, lymphadenopathy, thyromegaly - Expanded Neck Exam Expanded Neck exam: Present: tenderness. Absent: anterior neck swelling, tracheal deviation - Respiratory Respiratory exam: Present: normal lung sounds bilaterally. Absent: respiratory distress, wheezes, rales, rhonchi, stridor, chest wall tenderness - Cardiovascular Cardiovascular Exam: Present: regular rate, normal rhythm, normal heart sounds - GI/Abdominal GI/Abdominal exam: Present: soft, normal bowel sounds. Absent: distended, tenderness, guarding, rebound, rigid, bruit, hernia - Rectal Rectal exam: Present: deferred - Extremities Exam Extremities exam: Present: normal inspection, full ROM, normal capillary refill. Absent: tenderness - Back Exam Back exam: Present: normal inspection, full ROM. Absent: tenderness - Neurological Exam Neurological exam: Present: alert, oriented X3, CN II-XII intact, normal gait - Expanded Neurological Exam Expanded Patient oriented to: Present: person, place, time Speech: Present: fluid speech Cranial nerves: EOM's Intact: Normal, Gag Reflex: Normal Motor strength exam: RUE: 5, LUE: 5, RLE: 5, LLE: 5 Best Eye Response (Brandy): (4) open spontaneously Best Motor Response (Brandy): (6) obeys commands Best Verbal Response ([place]): (5) oriented Brandy Total: 15 - Psychiatric Psychiatric exam: Present: normal affect, normal mood - Skin Skin exam: Present: warm, dry, intact, normal color, rash (bilat forearm erythema smooth to touch no fever no open lesions ), erythema, urticaria. Absent: ecchymosis ED Course Vital Signs 02/14/21 02/15/21 23:45 00:09 Temperature 98.2 F Pulse Rate 99 H 92 H Respiratory 24 24 Rate Blood Pressure 156/61 O2 Sat by Pulse 100 100 Oximetry ED Medical Decision Making - Medical Decision Making This is a contact versus irritant dermatitis , there is no open skin or lesions, there is no wheezings or shortness of breath there is no headache no dizziness no nausea vomiting no chest pain. Patient symptoms improved with Benadryl, reglan, prednisone, will dc to home with rx for same, pt with nad at this time. Critical care attestation.: If time is entered above; I have spent that time in minutes in the direct care of this critically ill patient, excluding procedure time. ED Disposition Clinical Impression: Allergic reaction Qualifiers: Encounter type: initial encounter Qualified Code(s): T78.40XA - Allergy, unspecified, initial encounter Disposition: DC-01 TO HOME OR SELFCARE Is pt being admited?: No Does the pt Need Aspirin: No Condition: Stable Instructions: Allergies, Adult, [id number], Allergies, Adult Additional Instructions: take medicactions as prescribed, Prescriptions: diphenhydrAMINE [Benadryl CAP] 25 mg PO Q8HR PRN #21 capsule PRN Reason: allergies predniSONE [Deltasone] 40 mg PO QDAY 5 Days #10 tab Metoclopramide [Reglan] 10 mg PO Q6H PRN #21 tablet PRN Reason: allergies Referrals: SAGAR WASHINGTON MD [Staff Physician] - 3-5 Days Forms: Work/School Release Form(ED) Time of Disposition: 01:14
[2021-02-15 00:09] VITALS: BP 156/61
== END 2021-02-15 01:20 | disposition home or self-care (01) ==
LOC: ED 23:18
DX: T78.40XA Allergy, unspecified, initial encounter (principal); K21.9 Gastro-esophageal reflux disease without esophagitis; G43.909 Migraine, unspecified, not intractable, without status migrainosus; J45.909 Unspecified asthma, uncomplicated; F17.200 Nicotine dependence, unspecified, uncomplicated; Z90.49 Acquired absence of other specified parts of digestive tract; Z98.890 Other specified postprocedural states; Z79.1 Long term (current) use of non-steroidal anti-inflammatories (NSAID); Z79.2 Long term (current) use of antibiotics; Z79.899 Other long term (current) drug therapy; Z88.8 Allergy status to other drugs, medicaments and biological substances; X58.XXXA Exposure to other specified factors, initial encounter
CPT/HCPCS: 99282; J7512

== ENCOUNTER 2021-07-01 20:09 | Emergency (ER) | payer MEDICAID ==
--- NOTE | 2021-07-01 21:33 | XRay Report ---
LEFT KNEE, 3 VIEWS INDICATION / CLINICAL INFORMATION: L knee pain. fall. COMPARISON: None available. FINDINGS: Mild degenerative changes are present throughout 3 compartments of the knee. No acute fracture or dis location. No joint effusion. There is osseous density measuring 7 mm projecting above the intercondy lar eminence within the joint possibly representing osteochondral loose body. No other significant finding. IMPRESSION: 1. Mild to moderate degenerative change indicative of osteoarthritis. 2. Probable 7 mm osteochondral loose body near the intercondylar eminence anteriorly. Signer Name: Alaina Contreras MD Signed: 07/01/2021 9:28 PM Workstation Name: [id number]
[2021-07-01] MEDS ORDERED: ACETAMINOPHEN 500 MG TAB PO ONE (21:42)
[2021-07-01] MEDS ORDERED: IBUPROFEN 600 MG TAB PO ONE (21:42)
[2021-07-01 21:57] VITALS: BP 121/68
--- NOTE | 2021-07-01 21:59 | Emergency Department Report ---
ED Fall HPI - General Chief Complaint: Extremity Injury, Lower Stated Complaint: LEFT KNEE LOCKED UP/PAINFUL Source: patient Mode of arrival: Ambulatory - History of Present Illness Initial Comments: Patient is a 40-year-old female with history of morbid obesity, asthma, heavy tobacco abuse, GERD and migraine headaches who presents to the ED with complaint of acute onset persistent severe left knee pain after she lost balance and fell down on a concrete floor at work 24 hours ago. Patient states that the pain is worse especially in the anterior to medial left knee especially with any movement. Patient states that she is unable to bear weight extensively for a long time on the left leg because of severe left knee pain. Patient denies head or neck injuries, numbness and tingling or weakness of left leg, dizziness, syncope, seizures, back pain, chest pain, heavy lifting, shortness of breath, nausea and vomiting, fever and chills or hip pain. MD Complaint: fall, other (Left knee pain) -: Sudden, hour(s) (24) Fall From: standing When Fall Occurred: 24 hours [employer] Fall Witnessed: yes, by bystander Place Fall Occurred: work Loss of Consciousness: none Prolonged Down Time?: no Symptoms Prior to Fall: none Location: other (Left knee pain) Location - Extremities: Left: Knee (Left knee pain) Severity: severe Severity scale (0 -10): 7 Quality: sharp, aching Context: tripped/slipped Associated Symptoms: denies. denies: headache, neck pain, numbness, weakness, chest paint, shortness of breath, abdominal pain, hematuria, unable to walk, lightheaded, vertigo, confusion - Related Data Previous Rx's Medication Instructions Recorded Last Taken Type Albuterol Sulfate [Proair 90 mcg IH QID PRN #1 aer.pow.ba 08/19/19 Unknown Rx Respiclick] Benzonatate [Tessalon Perles] 100 mg PO Q12H PRN #20 capsule 08/19/19 Unknown Rx Cetirizine HCl [ZyrTEC] 10 mg PO DAILY #30 capsule 08/19/19 Unknown Rx Fluticasone [Flonase] 1 spray NS QDAY #1 bottle 08/19/19 Unknown Rx Erythromycin [Erythromycin Ophth 1 strip OU QID 10 Days #1 tube 08/27/19 Unknown Rx Oint] cephALEXin [Keflex] 500 mg PO Q6HR #28 capsule 06/23/20 Unknown Rx Gabapentin 300 mg PO Q12H PRN #40 capsule 08/09/20 Unknown Rx Ibuprofen [Motrin 800 MG tab] 800 mg PO Q8HR PRN #30 tablet 08/09/20 Unknown Rx predniSONE [Deltasone] 60 mg PO DAILY #15 tablet 08/09/20 Unknown Rx Metoclopramide [Reglan] 10 mg PO Q6H PRN #21 tablet 02/15/21 Unknown Rx diphenhydrAMINE [Benadryl CAP] 25 mg PO Q8HR PRN #21 capsule 02/15/21 Unknown Rx predniSONE [Deltasone] 40 mg PO QDAY 5 Days #10 tab 02/15/21 Unknown Rx Baclofen 20 mg PO Q12H PRN #20 tablet 07/01/21 Unknown Rx Ibuprofen [Motrin] 800 mg PO Q8HR PRN #30 tablet 07/01/21 Unknown Rx traMADoL [Ultram] 50 mg PO Q6HR PRN #12 tablet 07/01/21 Unknown Rx Allergies Allergy/AdvReac Type Severity Reaction Status Date / Time codeine Allergy Rash Verified 08/19/19 07:28 ED Review of Systems ROS: Stated complaint: LEFT KNEE LOCKED UP/PAINFUL Other details as noted in HPI Constitutional: denies: chills, fever Eyes: denies: eye pain, eye discharge, vision change ENT: denies: ear pain, throat pain Respiratory: denies: cough, shortness of breath, wheezing Cardiovascular: denies: chest pain, palpitations Endocrine: no symptoms reported Gastrointestinal: denies: abdominal pain, nausea, diarrhea Genitourinary: denies: urgency, dysuria, discharge Musculoskeletal: arthralgia (Left knee pain). denies: back pain, joint swelling Skin: denies: rash, lesions Neurological: denies: headache, weakness, paresthesias Psychiatric: denies: anxiety, depression Hematological/Lymphatic: denies: easy bleeding, easy bruising ED Past Medical Hx - Past Medical History Previous Medical History?: Yes Hx Hypertension: No Hx CVA: No Hx Heart Attack/AMI: No Hx Congestive Heart Failure: No Hx Diabetes: No Hx Deep Vein Thrombosis: No Hx Pulmonary Embolism: No Hx GERD: Yes Hx Liver Disease: No Hx Renal Disease: No Hx Sickle Cell Disease: No Hx Arthritis: No Hx Headaches / Migraines: Yes Hx Seizures: No Hx Kidney Stones: No Hx Psychiatric Treatment: No Hx Asthma: Yes (pt smokes, i counciled pt to stop) Hx COPD: No Additional medical history: pancreatitis (multiple episodes ), BRONCHITIS. obesity - Surgical History Past Surgical History?: Yes Hx Cholecystectomy: Yes Additional Surgical History: x 2 - Social History Smoking Status: Never Smoker - Medications Home Medications: Home Medications Medication Instructions Recorded Confirmed Last Taken Type Albuterol Sulfate [Proair 90 mcg IH QID PRN #1 aer.pow.ba 08/19/19 Unknown Rx Respiclick] Benzonatate [Tessalon Perles] 100 mg PO Q12H PRN #20 capsule 08/19/19 Unknown Rx Cetirizine HCl [ZyrTEC] 10 mg PO DAILY #30 capsule 08/19/19 Unknown Rx Fluticasone [Flonase] 1 spray NS QDAY #1 bottle 08/19/19 Unknown Rx Erythromycin [Erythromycin Ophth 1 strip OU QID 10 Days #1 tube 08/27/19 Unknown Rx Oint] cephALEXin [Keflex] 500 mg PO Q6HR #28 capsule 06/23/20 Unknown Rx Gabapentin 300 mg PO Q12H PRN #40 capsule 08/09/20 Unknown Rx Ibuprofen [Motrin 800 MG tab] 800 mg PO Q8HR PRN #30 tablet 08/09/20 Unknown Rx predniSONE [Deltasone] 60 mg PO DAILY #15 tablet 08/09/20 Unknown Rx Metoclopramide [Reglan] 10 mg PO Q6H PRN #21 tablet 02/15/21 Unknown Rx diphenhydrAMINE [Benadryl CAP] 25 mg PO Q8HR PRN #21 capsule 02/15/21 Unknown Rx predniSONE [Deltasone] 40 mg PO QDAY 5 Days #10 tab 02/15/21 Unknown Rx Baclofen 20 mg PO Q12H PRN #20 tablet 07/01/21 Unknown Rx Ibuprofen [Motrin] 800 mg PO Q8HR PRN #30 tablet 07/01/21 Unknown Rx traMADoL [Ultram] 50 mg PO Q6HR PRN #12 tablet 07/01/21 Unknown Rx ED Physical Exam - General Limitations: No Limitations General appearance: alert, in no apparent distress, obese - Head Head exam: Present: atraumatic, normocephalic, normal inspection - Eye Eye exam: Present: normal appearance, PERRL, EOMI Pupils: Present: normal accommodation - ENT ENT exam: Present: normal exam, normal orophraynx, mucous membranes moist, TM's normal bilaterally, normal external ear exam - Neck Neck exam: Present: normal inspection, full ROM - Respiratory Respiratory exam: Present: normal lung sounds bilaterally. Absent: respiratory distress, wheezes, rales, stridor, chest wall tenderness, decreased breath sounds - Cardiovascular Cardiovascular Exam: Present: regular rate, normal rhythm, normal heart sounds. Absent: systolic murmur, diastolic murmur, rubs, gallop - GI/Abdominal GI/Abdominal exam: Present: soft, normal bowel sounds. Absent: tenderness, guarding, hyperactive bowel sounds, hypoactive bowel sounds - Extremities Exam Extremities exam: Present: normal inspection, tenderness (Palpable left knee tenderness with limited range of motion due to pain), normal capillary refill. Absent: full ROM (Limited range of motion of left knee due to pain), pedal edema, joint swelling, calf tenderness - Back Exam Back exam: Present: normal inspection, full ROM. Absent: tenderness, CVA tenderness (R), CVA tenderness (L), muscle spasm, paraspinal tenderness, vertebral tenderness - Neurological Exam Neurological exam: Present: alert, oriented X3, CN II-XII intact, normal gait, reflexes normal - Psychiatric Psychiatric exam: Present: normal affect, normal mood - Skin Skin exam: Present: warm, dry, intact, normal color. Absent: rash ED Medical Decision Making - Radiology Data Radiology results: report reviewed, image reviewed [facility] [address] [place] [address] XRay Report Signed Patient: JANNETH FRANCIS MR#: [id number] : 1980 Acct:[id number] Age/Sex: 40 / F ADM Date: 07/01/21 Loc: ED Attending Dr: Ordering Physician: NELSON MUÑIZ Date of Service: 07/01/21 Procedure(s): XR knee 3V LT Accession Number(s): [id number] cc: NELSON MUÑIZ Fluoro Time In Minutes: LEFT KNEE, 3 VIEWS INDICATION / CLINICAL INFORMATION: L knee pain. fall. COMPARISON: None available. FINDINGS: Mild degenerative changes are present throughout 3 compartments of the knee. No acute fracture or dislocation. No joint effusion. There is osseous density measuring 7 mm projecting above the intercondylar eminence within the joint possibly representing osteochondral loose body. No other significant finding. IMPRESSION: 1. Mild to moderate degenerative change indicative of osteoarthritis. 2. Probable 7 mm osteochondral loose body near the intercondylar eminence anteriorly. Signer Name: Alaina Contreras MD Signed: 07/01/2021 9:28 PM Workstation Name: [id number] Transcribed By: Dictated By: Alaina Contreras MD Electronically Authenticated By: Alaina Contreras MD Signed Date/Time: 07/01/212127 DD/ 26 TD/TT: - Medical Decision Making This is a 40-year-old female with history of morbid obesity, asthma, heavy tobacco abuse, GERD and migraine headaches who presents to the ED with complaint of acute onset persistent severe left knee pain after she lost balance and fell down on a concrete floor at work 24 hours ago. Patient states that the pain is worse especially in the anterior to medial left knee especially with any movement. Patient states that she is unable to bear weight extensively for a long time on the left leg because of severe left knee pain. In the ED, patient is alert and oriented x3 and is not in any distress. Left knee x-ray shows no acute fractures or subluxation but moderate degenerative joint disease. Patient was treated for pain in the ED and discharged home on pain medications. Patient symptoms are likely due to musculoskeletal injury following the fall. Patient was advised to follow-up with her primary care physician in 5 to 7 days for reevaluation or return to the ED immediately if symptoms get worse. - Differential Diagnosis Knee fracture; knee contusion; knee sprain; muscle strain Critical care attestation.: If time is entered above; I have spent that time in minutes in the direct care of this critically ill patient, excluding procedure time. ED Disposition Clinical Impression: Chronic osteoarthritis Sprain of left knee Qualifiers: Encounter type: initial encounter Involved ligament of knee: unspecified ligament Qualified Code(s): S83.92XA - Sprain of unspecified site of left knee, initial encounter Contusion of left knee Qualifiers: Encounter type: initial encounter Qualified Code(s): S80.02XA - Contusion of left knee, initial encounter Disposition: DC-01 TO HOME OR SELFCARE Is pt being admited?: No Does the pt Need Aspirin: No Condition: Stable Instructions: Contusion, [id number], Knee Sprain, Adult, [id number], Arthritis, [id number]-[id number] Additional Instructions: The left knee x-ray shows no acute fractures or subluxations but degenerative joint disease. Therefore take pain medication as needed, drink plenty of fluids and follow-up with your primary care physician in 5 to 7 days for reevaluation. Return to the ED immediately if symptoms get worse. Prescriptions: Baclofen 20 mg PO Q12H PRN #20 tablet PRN Reason: Muscle Spasm Ibuprofen [Motrin] 800 mg PO Q8HR PRN #30 tablet PRN Reason: Pain , Severe (7-10) traMADoL [Ultram] 50 mg PO Q6HR PRN #12 tablet PRN Reason: Pain Referrals: [facility] [Provider Group] - 3-5 Days Forms: Work/School Release Form(ED) Time of Disposition: 22:02 Print Language: MOZAMBICAN
== END 2021-07-01 22:25 | disposition home or self-care (01) ==
LOC: ED 20:09
DX: S83.92XA Sprain of unspecified site of left knee, initial encounter (principal); M19.90 Unspecified osteoarthritis, unspecified site; I10 Essential (primary) hypertension; K21.9 Gastro-esophageal reflux disease without esophagitis; J45.909 Unspecified asthma, uncomplicated; Z98.890 Other specified postprocedural states; Z88.5 Allergy status to narcotic agent; W19.XXXA Unspecified fall, initial encounter; Y93.89 Activity, other specified; Y92.89 Other specified places as the place of occurrence of the external cause; Y99.0 Civilian activity done for income or pay
CPT/HCPCS: 99283

== ENCOUNTER 2021-07-30 10:03 | Emergency (ER) | payer MEDICAID ==
[2021-07-30 10:37] VITALS: BP 129/70
--- NOTE | 2021-07-30 11:30 | XRay Report ---
LEFT ANKLE 3 VIEW(S) INDICATION / CLINICAL INFORMATION: left ankle injury COMPARISON: None available. FINDINGS: BONES / JOINT(S): No acute fracture or subluxation. Mild tibiotalar degenerative arthrosis. SOFT TISSUES: Mild diffuse soft tissue swelling of the distal left lower leg and ankle. ADDITIONAL FINDINGS: None. Signer Name: Kashif Norris MD Signed: 07/30/2021 11:25 AM Workstation Name: [id number]
--- NOTE | 2021-07-30 11:44 | Emergency Department Report ---
ED Lower Extremity HPI - General Chief Complaint: Extremity Injury, Lower Stated Complaint: L ANKLE INJURY Time Seen by Provider: 07/30/21 11:38 Source: patient, EMS Mode of arrival: Wheelchair Limitations: Physical Limitation - History of Present Illness Initial Comments: 40-year-old morbid obese female presents to the emergency room for left ankle injury for 2 days. Patient states that she jumped off a truck yesterday and injured her left ankle and then this morning she fell off the porch and reinjured the left ankle. Patient states that she took Tylenol this morning for pain. Patient denies any other area of pain. MD Complaint: ankle injury Injury: Ankle: Left Type of Injury: inversion Place: street/outdoors Severity: severe Severity scale (0 -10): 10 Associated Symptoms: snap/pop sensation, unable to bear weight Treatments Prior to Arrival: splint (EMS placed left ankle into box splint), other (Tylenol this morning) - Related Data Previous Rx's Medication Instructions Recorded Last Taken Type Albuterol Sulfate [Proair 90 mcg IH QID PRN #1 aer.pow.ba 08/19/19 Unknown Rx Respiclick] Benzonatate [Tessalon Perles] 100 mg PO Q12H PRN #20 capsule 08/19/19 Unknown Rx Cetirizine HCl [ZyrTEC] 10 mg PO DAILY #30 capsule 08/19/19 Unknown Rx Fluticasone [Flonase] 1 spray NS QDAY #1 bottle 08/19/19 Unknown Rx Erythromycin [Erythromycin Ophth 1 strip OU QID 10 Days #1 tube 08/27/19 Unknown Rx Oint] cephALEXin [Keflex] 500 mg PO Q6HR #28 capsule 06/23/20 Unknown Rx Gabapentin 300 mg PO Q12H PRN #40 capsule 08/09/20 Unknown Rx Ibuprofen [Motrin 800 MG tab] 800 mg PO Q8HR PRN #30 tablet 08/09/20 Unknown Rx predniSONE [Deltasone] 60 mg PO DAILY #15 tablet 08/09/20 Unknown Rx Metoclopramide [Reglan] 10 mg PO Q6H PRN #21 tablet 02/15/21 Unknown Rx diphenhydrAMINE [Benadryl CAP] 25 mg PO Q8HR PRN #21 capsule 02/15/21 Unknown Rx predniSONE [Deltasone] 40 mg PO QDAY 5 Days #10 tab 03/17/21 Unknown Rx Baclofen 20 mg PO Q12H PRN #20 tablet 07/01/21 Unknown Rx Ibuprofen [Motrin] 800 mg PO Q8HR PRN #30 tablet 07/01/21 Unknown Rx traMADoL [Ultram] 50 mg PO Q6HR PRN #12 tablet 07/01/21 Unknown Rx Ibuprofen [Motrin 800 MG tab] 800 mg PO Q8HR PRN #21 tablet 07/30/21 Unknown Rx Allergies Allergy/AdvReac Type Severity Reaction Status Date / Time codeine Allergy Rash Verified 08/19/19 07:28 ED Review of Systems ROS: Stated complaint: L ANKLE INJURY Other details as noted in HPI Comment: All other systems reviewed and negative ED Past Medical Hx - Past Medical History Previous Medical History?: Yes Hx Hypertension: No Hx CVA: No Hx Heart Attack/AMI: No Hx Congestive Heart Failure: No Hx Diabetes: No Hx Deep Vein Thrombosis: No Hx Pulmonary Embolism: No Hx GERD: Yes Hx Liver Disease: No Hx Renal Disease: No Hx Sickle Cell Disease: No Hx Arthritis: No Hx Headaches / Migraines: Yes Hx Seizures: No Hx Kidney Stones: No Hx Psychiatric Treatment: No Hx Asthma: Yes (pt smokes, i counciled pt to stop) Hx COPD: No Additional medical history: pancreatitis (multiple episodes ), BRONCHITIS. obesity - Surgical History Past Surgical History?: Yes Hx Cholecystectomy: Yes Additional Surgical History: x 2 - Social History Smoking Status: Current Every Day Smoker Substance Use Type: None - Medications Home Medications: Home Medications Medication Instructions Recorded Confirmed Last Taken Type Albuterol Sulfate [Proair 90 mcg IH QID PRN #1 aer.pow.ba 08/19/19 Unknown Rx Respiclick] Benzonatate [Tessalon Perles] 100 mg PO Q12H PRN #20 capsule 08/19/19 Unknown Rx Cetirizine HCl [ZyrTEC] 10 mg PO DAILY #30 capsule 08/19/19 Unknown Rx Fluticasone [Flonase] 1 spray NS QDAY #1 bottle 08/19/19 Unknown Rx Erythromycin [Erythromycin Ophth 1 strip OU QID 10 Days #1 tube 08/27/19 Unknown Rx Oint] cephALEXin [Keflex] 500 mg PO Q6HR #28 capsule 06/23/20 Unknown Rx Gabapentin 300 mg PO Q12H PRN #40 capsule 08/09/20 Unknown Rx Ibuprofen [Motrin 800 MG tab] 800 mg PO Q8HR PRN #30 tablet 08/09/20 Unknown Rx predniSONE [Deltasone] 60 mg PO DAILY #15 tablet 08/09/20 Unknown Rx Metoclopramide [Reglan] 10 mg PO Q6H PRN #21 tablet 02/15/21 Unknown Rx diphenhydrAMINE [Benadryl CAP] 25 mg PO Q8HR PRN #21 capsule 02/15/21 Unknown Rx predniSONE [Deltasone] 40 mg PO QDAY 5 Days #10 tab 02/15/21 Unknown Rx Baclofen 20 mg PO Q12H PRN #20 tablet 07/01/21 Unknown Rx Ibuprofen [Motrin] 800 mg PO Q8HR PRN #30 tablet 07/01/21 Unknown Rx traMADoL [Ultram] 50 mg PO Q6HR PRN #12 tablet 07/01/21 Unknown Rx Ibuprofen [Motrin 800 MG tab] 800 mg PO Q8HR PRN #21 tablet 07/30/21 Unknown Rx ED Physical Exam - General Limitations: Physical Limitation General appearance: alert, in no apparent distress, obese - Head Head exam: Present: atraumatic, normocephalic - Eye Eye exam: Present: normal appearance - ENT ENT exam: Present: mucous membranes moist - Neck Neck exam: Present: normal inspection, full ROM - Respiratory Respiratory exam: Absent: respiratory distress, accessory muscle use - Cardiovascular Cardiovascular Exam: Present: regular rate - Expanded Lower Extremity Exam Left Hip exam: Present: full ROM Upper Leg exam: Present: normal inspection Knee exam: Present: normal inspection Lower Leg exam: Present: normal inspection, full ROM Ankle exam: Present: full ROM, tenderness (Medial malleolus). Absent: swelling, laceration, ecchymosis, deformity, crepidus, dislocation, erythema, anterior draw sign Foot/Toe exam: Present: full ROM. Absent: tenderness, swelling Neuro vascular tendon exam: Present: no vascular compromise - Back Exam Back exam: Present: full ROM. Absent: tenderness - Neurological Exam Neurological exam: Present: alert, oriented X3 - Psychiatric Psychiatric exam: Present: normal affect, normal mood - Skin Skin exam: Present: warm, dry, intact, normal color. Absent: rash ED Course Vital Signs 07/30/21 10:34 Temperature 98.6 F Pulse Rate 86 Respiratory 19 Rate Blood Pressure 129/70 O2 Sat by Pulse 98 Oximetry ED Lower Extremity MDM - Radiology Data Radiology results: report reviewed [facility] [address] [place] [address] XRay Report Signed Patient: JANNETH FRANCIS MR#: [id number] : 1980 Acct:[id number] Age/Sex: 40 / F ADM Date: 07/30/21 Loc: ED Attending Dr: Ordering Physician: JEFRY KING MD Date of Service: 07/30/21 Procedure(s): XR ankle 3+V LT Accession Number(s): [id number] cc: ED MD FERNANDO Fluoro Time In Minutes: LEFT ANKLE 3 VIEW(S) INDICATION / CLINICAL INFORMATION: left ankle injury COMPARISON: None available. FINDINGS: BONES / JOINT(S): No acute fracture or subluxation. Mild tibiotalar degenerative arthrosis. SOFT TISSUES: Mild diffuse soft tissue swelling of the distal left lower leg and ankle. ADDITIONAL FINDINGS: None. Signer Name: Kashif Norris MD Signed: 07/30/2021 11:25 AM Workstation Name: [id number] Transcribed By: DT Dictated By: Flex Norris MD Electronically Authenticated By: Flex Norris MD Signed Date/Time: 07/30/211124 DD/ 23 TD/TT: Print Cancel - Medical Decision Making 40-year-old morbid obese female presents to the emergency room for left ankle injury for 2 days. Patient states that she jumped off a truck yesterday and injured her left ankle and then this morning she fell off the porch and reinjured the left ankle. Patient states that she took Tylenol this morning for pain. Patient denies any other area of pain. X-ray of left ankle shows no acute fractures dislocation. We will treat patient for ankle sprain place her in an Aircast ibuprofen and to follow-up with the orthopedic provider. Critical care attestation.: If time is entered above; I have spent that time in minutes in the direct care of this critically ill patient, excluding procedure time. ED Disposition Clinical Impression: Left ankle sprain, Severely overweight Disposition: HOME / SELF CARE / HOMELESS Is pt being admited?: No Does the pt Need Aspirin: No Condition: Stable Instructions: Ankle Sprain, [id number], How to Use a Stirrup Ankle Brace Additional Instructions: X-rays negative for any fractures or dislocations. You are diagnosed with a ankle sprain. Ice elevate use crutches Wear Aircast and follow-up with orthopedic if no improvement. Prescriptions: Ibuprofen [Motrin 800 MG tab] 800 mg PO Q8HR PRN #21 tablet PRN Reason: Pain , Severe (7-10) Referrals: YOLANDA BENSON MD [Staff Physician] - 3-5 Days Forms: Work/School Release Form(ED) Time of Disposition: 11:50
== END 2021-07-30 12:42 | disposition home or self-care (01) ==
LOC: ED 10:03
DX: S93.402A Sprain of unspecified ligament of left ankle, initial encounter (principal); E66.01 Morbid (severe) obesity due to excess calories; K21.9 Gastro-esophageal reflux disease without esophagitis; J45.909 Unspecified asthma, uncomplicated; G43.909 Migraine, unspecified, not intractable, without status migrainosus; K85.90 Acute pancreatitis without necrosis or infection, unspecified; Z98.890 Other specified postprocedural states; F17.200 Nicotine dependence, unspecified, uncomplicated; Z88.5 Allergy status to narcotic agent; W17.89XA Other fall from one level to another, initial encounter; Y93.89 Activity, other specified; Y92.89 Other specified places as the place of occurrence of the external cause; Y99.8 Other external cause status
CPT/HCPCS: 99284

== ENCOUNTER 2021-08-15 11:46 | Emergency (ER) | payer MEDICAID ==
[2021-08-15] MEDS ORDERED: KETOROLAC 10 MG TAB PO ONE (14:44)
--- NOTE | 2021-08-15 14:51 | Emergency Department Report ---
Upper Extremity - HPI Chief Complaint: Extremity Injury, Upper Stated Complaint: R SHOULDER PAIN Time Seen by Provider: 08/15/21 14:21 Upper Extremity: Right Shoulder Occurred When: Today Mechanism: Fall Severity: severe Symptoms: Yes Pain with Movement, Yes Limited Range of Movement, No Deformity, No Numbness, No Weakness, No Swelling, No Bruising/Ecchymosis, No Laceration or Abrasion Other History: Patient presents for right shoulder pain. Patient states she fell at home from her porch when she was attempting to run into her home around 5 AM this morning. Patient states she is unable to lift her right arm. She reports pain to her right shoulder which is nonradiating. She denies swelling, bruising, numbness or tingling. ED Review of Systems ROS: Stated complaint: R SHOULDER PAIN Other details as noted in HPI Constitutional: denies: chills, fever Musculoskeletal: arthralgia (right shoulder pain). denies: back pain, joint swelling Skin: denies: rash, lesions Neurological: denies: headache, weakness, paresthesias Psychiatric: denies: anxiety, depression ED Past Medical Hx - Past Medical History Previous Medical History?: Yes Hx Hypertension: No Hx CVA: No Hx Heart Attack/AMI: No Hx Congestive Heart Failure: No Hx Diabetes: No Hx Deep Vein Thrombosis: No Hx Pulmonary Embolism: No Hx GERD: Yes Hx Liver Disease: No Hx Renal Disease: No Hx Sickle Cell Disease: No Hx Arthritis: No Hx Headaches / Migraines: Yes Hx Seizures: No Hx Kidney Stones: No Hx Psychiatric Treatment: No Hx Asthma: Yes (pt smokes, i counciled pt to stop) Hx COPD: No Additional medical history: pancreatitis (multiple episodes ), BRONCHITIS. obesity - Surgical History Past Surgical History?: Yes Hx Cholecystectomy: Yes Additional Surgical History: x 2 - Social History Smoking Status: Current Every Day Smoker Substance Use Type: None - Medications Home Medications: Home Medications Medication Instructions Recorded Confirmed Last Taken Type Albuterol Sulfate [Proair 90 mcg IH QID PRN #1 aer.pow.[email or web address] 08/19/19 Unknown Rx Respiclick] Benzonatate [Tessalon Perles] 100 mg PO Q12H PRN #20 capsule 08/19/19 Unknown Rx Cetirizine HCl [ZyrTEC] 10 mg PO DAILY #30 capsule 08/19/19 Unknown Rx Fluticasone [Flonase] 1 spray NS QDAY #1 bottle 08/19/19 Unknown Rx Erythromycin [Erythromycin Ophth 1 strip OU QID 10 Days #1 tube 08/27/19 Unknown Rx Oint] cephALEXin [Keflex] 500 mg PO Q6HR #28 capsule 06/23/20 Unknown Rx Gabapentin 300 mg PO Q12H PRN #40 capsule 08/09/20 Unknown Rx Ibuprofen [Motrin 800 MG tab] 800 mg PO Q8HR PRN #30 tablet 08/09/20 Unknown Rx predniSONE [Deltasone] 60 mg PO DAILY #15 tablet 08/09/20 Unknown Rx Metoclopramide [Reglan] 10 mg PO Q6H PRN #21 tablet 02/15/21 Unknown Rx diphenhydrAMINE [Benadryl CAP] 25 mg PO Q8HR PRN #21 capsule 02/15/21 Unknown Rx predniSONE [Deltasone] 40 mg PO QDAY 5 Days #10 tab 02/15/21 Unknown Rx Baclofen 20 mg PO Q12H PRN #20 tablet 07/01/21 Unknown Rx Ibuprofen [Motrin] 800 mg PO Q8HR PRN #30 tablet 07/01/21 Unknown Rx traMADoL [Ultram] 50 mg PO Q6HR PRN #12 tablet 07/01/21 Unknown Rx Ibuprofen [Motrin 800 MG tab] 800 mg PO Q8HR PRN #21 tablet 07/30/21 Unknown Rx Naproxen [Naprosyn] 500 mg PO BID #20 tablet 08/15/21 Unknown Rx Upper Extremity Exam - Exam General: Vital signs noted. No distress. Alert and acting appropriately. Head and Torso: No HEENT Abnormality, No Neck Tenderness, No Chest/Lungs Abnormality, No Abdominal Tenderness, No Back Tenderness Shoulder Exam: Yes Shoulder Tenderness, Yes AC Joint Tenderness, No Clavicle Tenderness, No Normal Range of Motion in Shoulder (30 degree flexion/extension, no obvious deformity, no erythema or ecchymosis), No Shoulder Deformity Arm Exam: No Arm/Humerus Tenderness, No Arm Deformity Elbow: No Elbow Tenderness, No Normal Range of Motion in Elbow, No Elbow Deformity Forearm: No Forearm Tenderness, No Forearm Deformity, No Pain with Pronation, No Pain with Supination Wrist: Yes Normal ROM in Wrist, No Wrist Tenderness, No Wrist Deformity, No Snuffbox Tenderness, No Pain with Axial Thumb Compression Hand: Yes Normal ROM in Digit(s), No Hand Tenderness, No Hand Deformity, No Di git Tenderness, No Digit(s) Deformity, No Tendon Dysfunction CMS Exam: Yes Normal Distal Pulses, Yes Normal Capillary Refill, Yes Normal Distal Sensation, No Broken Skin ED Course Vital Signs 08/15/21 13:59 Temperature 97.3 F L Pulse Rate 80 Respiratory 16 Rate Blood Pressure 128/65 [Right] O2 Sat by Pulse 100 Oximetry ED Medical Decision Making - Radiology Data Radiology results: report reviewed RIGHT SHOULDER HISTORY: Fall, pain COMPARISON: None. TECHNIQUE: 3 views of the right shoulder were obtained. FINDINGS: Bones: No fracture or dislocation. No significant degenerative change. Joint spaces: Maintained. Soft tissues: No significant abnormality. Additional findings: None. IMPRESSION: Right shoulder without evidence of acute osseous injury. Signer Name: Bud Hansen MD Signed: 08/15/2021 3:37 PM Workstation Name: [id number] - Medical Decision Making 40-year-old female complaining of right shoulder pain since 5 AM this morning. Patient was examined by me. Patient is nontoxic appearing and stable. Vitals are normal. Limited range of motion with extension and flexion about 30 degrees. Normal sensation over deltoid, nontender Clavicle and humerus on exam. Obtained x-ray of right shoulder with no acute radiographic findings. On exam no signs of trauma. This is possible sprain shoulder. Patient instructed of symptoms being a self-limiting. RICE therapy given. Start NSAIDs. They have been given strict return her precautions for delayed possible symptoms. Patient discharged with prompt follow-up with primary care physician. Critical care attestation.: If time is entered above; I have spent that time in minutes in the direct care of this critically ill patient, excluding procedure time. ED Disposition Clinical Impression: Pain in right shoulder Qualifiers: Chronicity: acute Qualified Code(s): M25.511 - Pain in right shoulder Sprain of shoulder, right Qualifiers: Encounter type: initial encounter Shoulder sprain type: unspecified sprain Qualified Code(s): S43.401A - Unspecified sprain of right shoulder joint, initial encounter Disposition: HOME / SELF CARE / HOMELESS Is pt being admited?: No Condition: Stable Instructions: Shoulder Pain, How to Use Cold Therapy Prescriptions: Naproxen [Naprosyn] 500 mg PO BID #20 tablet Referrals: [facility] [Outside] - 3-5 Days [facility] [Provider Group] - 3-5 Days Forms: Work/School Release Form(ED) Time of Disposition: 16:14
--- NOTE | 2021-08-15 15:42 | XRay Report ---
RIGHT SHOULDER HISTORY: Fall, pain COMPARISON: None. TECHNIQUE: 3 views of the right shoulder were obtained. FINDINGS: Bones: No fracture or dislocation. No significant degenerative change. Joint spaces: Maintained. Soft tissues: No significant abnormality. Additional findings: None. IMPRESSION: Right shoulder without evidence of acute osseous injury. Signer Name: Bud Hansen MD Signed: 08/15/2021 3:37 PM Workstation Name: [id number]
[2021-08-15 16:46] VITALS: BP 144/84
== END 2021-08-15 16:45 | disposition home or self-care (01) ==
LOC: ED 11:46
DX: S46.911A Strain of unspecified muscle, fascia and tendon at shoulder and upper arm level, right arm, initial encounter (principal); K21.9 Gastro-esophageal reflux disease without esophagitis; G43.909 Migraine, unspecified, not intractable, without status migrainosus; J45.909 Unspecified asthma, uncomplicated; Z98.890 Other specified postprocedural states; F17.200 Nicotine dependence, unspecified, uncomplicated; W19.XXXA Unspecified fall, initial encounter; Y93.89 Activity, other specified; Y92.89 Other specified places as the place of occurrence of the external cause; Y99.8 Other external cause status
CPT/HCPCS: 99283

== ENCOUNTER 2021-10-10 08:17 | Emergency (ER) | payer MEDICAID ==
[2021-10-10 08:42] VITALS: BP 136/76
[2021-10-10] MEDS ORDERED: LIDOCAINE-MPF (1%) 10 MG/1 ML VIAL 5 ML INFILTRATI ONE (08:54)
--- NOTE | 2021-10-10 08:55 | Emergency Department Report ---
ED Dysuria HPI - HPI Chief Complaint: Urogenital-Female Stated Complaint: BURNING WHEN URINE Time Seen by Provider: 10/10/21 08:54 Duration: 2 Days Location of Discomfort: Suprapubic Severity: Mild Symptoms: Dysuria: Yes, Frequency: Yes, Suprapubic Pain: Yes, Flank Pain: No, Fever: No, Hematuria: No, Abdominal Pain: No, Previous UTI's: Yes Other History: 40 YO COMES TO ER WITH SEVERAL DAY HX OF BLADDER SPASM. SHE HAS HAD UTI IN THE PAST BUT STATES THIS FEELS DIFFERENT. NO VAG D/C BUT SHE IS WORRIED THAT HER SOON TO BE X- HAS BEEN WITH A "PROSTITUTE.". NO FEVER. NO CHILLS. NO ABD PAIN. NO BACK PAIN. AMBULATORY AND NON ILL ON ARRIVAL TO TRIAGE ED Review of Systems ROS: Stated complaint: BURNING WHEN URINE Other details as noted in HPI Comment: All other systems reviewed and negative ED Past Medical Hx - Past Medical History Previous Medical History?: Yes Hx Hypertension: No Hx CVA: No Hx Heart Attack/AMI: No Hx Congestive Heart Failure: No Hx Diabetes: No Hx Deep Vein Thrombosis: No Hx Pulmonary Embolism: No Hx GERD: Yes Hx Liver Disease: No Hx Renal Disease: No Hx Sickle Cell Disease: No Hx Arthritis: No Hx Headaches / Migraines: Yes Hx Seizures: No Hx Kidney Stones: No Hx Psychiatric Treatment: No Hx Asthma: Yes (pt smokes, i counciled pt to stop) Hx COPD: No Additional medical history: pancreatitis (multiple episodes ), BRONCHITIS. obesity - Surgical History Past Surgical History?: Yes Hx Cholecystectomy: Yes Additional Surgical History: x 2 - Family History Family history: no significant - Social History Smoking Status: Current Every Day Smoker Substance Use Type: None - Medications Home Medications: Home Medications Medication Instructions Recorded Confirmed Last Taken Type Albuterol Sulfate [Proair 90 mcg IH QID PRN #1 aer.pow.ba 08/19/19 Unknown Rx Respiclick] Benzonatate [Tessalon Perles] 100 mg PO Q12H PRN #20 capsule 08/19/19 Unknown Rx Cetirizine HCl [ZyrTEC] 10 mg PO DAILY #30 capsule 08/19/19 Unknown Rx Fluticasone [Flonase] 1 spray NS QDAY #1 bottle 08/19/19 Unknown Rx Erythromycin [Erythromycin Ophth 1 strip OU QID 10 Days #1 tube 08/27/19 Unknown Rx Oint] cephALEXin [Keflex] 500 mg PO Q6HR #28 capsule 06/23/20 Unknown Rx Gabapentin 300 mg PO Q12H PRN #40 capsule 08/09/20 Unknown Rx Ibuprofen [Motrin 800 MG tab] 800 mg PO Q8HR PRN #30 tablet 08/09/20 Unknown Rx predniSONE [Deltasone] 60 mg PO DAILY #15 tablet 08/09/20 Unknown Rx Metoclopramide [Reglan] 10 mg PO Q6H PRN #21 tablet 02/15/21 Unknown Rx diphenhydrAMINE [Benadryl CAP] 25 mg PO Q8HR PRN #21 capsule 02/15/21 Unknown Rx predniSONE [Deltasone] 40 mg PO QDAY 5 Days #10 tab 02/15/21 Unknown Rx Baclofen 20 mg PO Q12H PRN #20 tablet 07/01/21 Unknown Rx Ibuprofen [Motrin] 800 mg PO Q8HR PRN #30 tablet 07/01/21 Unknown Rx traMADoL [Ultram] 50 mg PO Q6HR PRN #12 tablet 07/01/21 Unknown Rx Ibuprofen [Motrin 800 MG tab] 800 mg PO Q8HR PRN #21 tablet 07/30/21 Unknown Rx Naproxen [Naprosyn] 500 mg PO BID #20 tablet 08/15/21 Unknown Rx Azithromycin 1,000 mg PO ONCE #2 tablet 10/10/21 Unknown Rx Fluconazole [Diflucan TAB] 100 mg PO QDAY #2 tablet 10/10/21 Unknown Rx Sulfamethoxazole/Trimethoprim 1 each PO BID #10 tablet 10/10/21 Unknown Rx [Bactrim DS TAB] metroNIDAZOLE [Flagyl] 2,000 mg PO ONCE #4 tab 10/10/21 Unknown Rx Dysuria Exam - Exam General: Vital signs noted. No distress. Alert and acting appropriately. Exam: Yes Moist Mucous Membranes, No CVA Tenderness, No Abdominal Tenderness, No Rigidity or Guarding ED Course Vital Signs 10/10/21 08:42 Temperature 97.8 F Pulse Rate 81 Respiratory 16 Rate Blood Pressure 136/76 [Right] O2 Sat by Pulse 100 Oximetry ED Medical Decision Making - Medical Decision Making Vital Signs 10/10/21 08:42 Temperature 97.8 F Pulse Rate 81 Respiratory 16 Rate Blood Pressure 136/76 [Right] O2 Sat by Pulse 100 Oximetry UA NOTED DC HOME ON BACTRIM CULTURE PENDING EMPIRIC TREATMENT FOR STI EXPOSURE- AZITHRO/ROCEPHIN AND FLAGYL DIFLUCAN FOR YEAST GIVEN ALL OF THE ANTIBIOTICS. DC HOME WITH DC PLAN OF CARE INCLUDING FOLLOW UP, MEDS AND SAFE SEX PRACTICES. - Differential Diagnosis uti/sti Critical care attestation.: If time is entered above; I have spent that time in minutes in the direct care of this critically ill patient, excluding procedure time. ED Disposition Clinical Impression: Exposure to STD UTI (urinary tract infection) Qualifiers: Urinary tract infection type: site unspecified Hematuria presence: without hematuria Qualified Code(s): N39.0 - Urinary tract infection, site not specified Disposition: HOME / SELF CARE / HOMELESS Is pt being admited?: No Does the pt Need Aspirin: No Condition: Stable Instructions: Urinary Tract Infection, Adult, [id number] Additional Instructions: MEDS ORDERED TODAY FOLLOW UP WITH PCP AFTER COMPLETION OF MEDS TO BE SURE THIS HAS GONE AWAY REFERRAL BELOW Prescriptions: Azithromycin 1,000 mg PO ONCE #2 tablet Sulfamethoxazole/Trimethoprim [Bactrim DS TAB] 1 each PO BID #10 tablet Fluconazole [Diflucan TAB] 100 mg PO QDAY #2 tablet metroNIDAZOLE [Flagyl] 2,000 mg PO ONCE #4 tab Referrals: TITI NATARAJAN MD [Staff Physician] - 3-5 Days Time of Disposition: 09:08
[2021-10-10 12:14] LABS: Bacteria,Urine 3+ /HPF (Negative); Bilirubin,Urine NEG (Negative); Blood,Urine MOD (Negative); Color,Urine Amber (Yellow); Mucus,Urine 3+ /HPF
[2021-10-10 12:15] LABS: HCG Qualitative,Urine Negative (Negative)
[2021-10-10 12:17] LABS: WBC,Urine > 182.0 /HPF (0.0-6.0)
[2021-10-10] MEDS ORDERED: HYDROGEN PEROXIDE 118 ML SOLUTION ONE (14:11)
== END 2021-10-10 18:33 | disposition home or self-care (01) ==
LOC: ED 08:17
DX: R30.0 Dysuria (principal); N39.0 Urinary tract infection, site not specified; Z20.2 Contact with and (suspected) exposure to infections with a predominantly sexual mode of transmission
CPT/HCPCS: 81001; 81025; 96372; 99282; J0696

== ENCOUNTER 2021-11-06 15:17 | Emergency (ER) | payer MEDICAID ==
[2021-11-06 15:50] VITALS: BP 136/83
== END 2021-11-07 10:12 ==
LOC: ED 15:17
DX: R06.02 Shortness of breath (principal); Z53.21 Procedure and treatment not carried out due to patient leaving prior to being seen by health care provider

== ENCOUNTER 2022-06-26 18:11 | Emergency (ER) | payer MEDICAID | END 2022-06-27 12:51 | disposition left against medical advice (07) | LOC: ED 18:11 | DX: T81.40XA Infection following a procedure, unspecified, initial encounter (principal); Z53.21 Procedure and treatment not carried out due to patient leaving prior to being seen by health care provider ==